=== PATIENT | female | born 1980 | race Caucasian/White ===

== ENCOUNTER 2016-10-19 19:12 | Observation (INO) | payer OTHER ==
[~2016-10-19] VITALS: Ht 160 cm; Wt 80.3 kg
[~2016-10-19 19:12] MED LIST: CEPH500C PO; SULF800T23 PO
[2016-10-19] MEDS ORDERED: SODIUM CHLORIDE 0.9% 1000ML 1,000 ML IV ONE (20:50)
[2016-10-19] MEDS ORDERED: KETOROLAC TROMETHAMINE 30 MG/ML VIAL IV STA (20:50)
[2016-10-19] MEDS ORDERED: SODIUM CHLORIDE 0.9% 1000ML 1,000 ML IV STA (20:50)
[2016-10-19 21:03] LABS: BASO % 0.3 %; BASO ABS # 0.02 K/uL (0-0.2); COMPLETE YES; EOS % 0.7 %; HEMATOCRIT 35.8 % (37-47); IG% 0.1 %; LYMPH % 26.2 %; LYMPH ABS # 1.78 K/uL (1.2-3.4); MEAN CELL VOLUME 95.5 fL (80-100); MEAN CORPUSCULAR HEMOGLOBIN 32.8 pg (25-34); MEAN CORPUSCULAR HGB CONC 34.4 g/dl (32-36); MEAN PLATELET VOLUME 9.3 fL (7.4-10.4); MONO % 4.9 %; NEUT % 67.8 %; PLATELET COUNT 217 K/uL (130-400); RED BLOOD COUNT 3.75 M/uL (4.2-5.4); WHITE BLOOD COUNT 6.79 K/uL (4.8-10.8)
--- NOTE | 2016-10-19 21:14 | EMERGENCY ROOM VISIT NOTE ---
History Report prepared by Esa: Vitaliy Barksdale Under the Supervision of: Dr. Delroy Alexander M.D. First contact with patient: 20:45 Chief Complaint: OTHER COMPLAINT Stated Complaint: HEAD, NECK, CHEST PAIN, BLACK OUT, WEAK, NAUSEA,LI History of Present Illness The patient is a 35 year old female who presents to the Emergency Room with complaints of syncopal episodes starting yesterday. She also complains of right sided neck pain and stiffness occurring for the past week and worsening in the past 2 days. She also reports weakness, chills, lightheadedness, dizziness, nausea, and vomiting. She has been having an intermittent, sharp, left sided chest pain. The pain lasts for a few minutes at a time. She has worsening pain with breathing. She also complains of a headache in the back of her head. She has a history of similar headaches but reports that the severity of her current headache is much worse than normal. She has had a loss of appetite and a reduced fluid intake. She has a history of anxiety and reports her current symptoms are similar to her past anxiety symptoms. She denies any trauma, injuries, fevers, dark/bloody stools, urinary symptoms, pain/swelling in lower extremities, or any other complaints. She denies any chance of . She denies any history of blood clots. 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 She quit smoking about a year ago. Source of History: patient, family Onset: yesterday Position: other (global) Quality: other (syncopal episodes) Associated Symptoms: + chest pain, + chills, + headache, + nausea, + neck pain, + vomiting, + weakness, No fevers, No urinary symptoms Review of Systems See HPI for pertinent positives & negatives. A total of 10 systems reviewed and were otherwise negative. Past Medical & Surgical Medical Problems: (1) Chest pain (2) Mily-rectal abscess (3) Pleuritic chest pain Surgical Problems: (1) S/P tubal ligation Old medical records were reviewed. Nurse's notes were reviewed and I agree with. Denies history cardiac disease, diabetes, blood clots, pneumothoraces, strokes She does have a history of headaches and migraines Family History FH: cancer FHx: diabetes mellitus FHx: heart disease FHx: seizures Social History Smoking Status: Never Smoker Drug Use: none Marital Status: Housing Status: lives with family Occupation Status: unemployed Current/Historical Medications Scheduled Cyanocobalamin (Vitamin B12), 1 TAB PO DAILY Doxycycline Monohydrate (Monodox), 50 MG PO DAILY Multivit/Min/Iron/Fol Ac/Pren ( Vitamin), 1 TAB PO DAILY [Back Cream], 1 APPLN TOP UD Scheduled PRN Clonazepam (Klonopin), 1 MG PO TID PRN for Anxiety Allergies Coded Allergies: No Known Allergies (Verified , 12/28/15) Physical Exam Vital Signs Date Time Temp Pulse Resp B/P Pulse Ox O2 Delivery O2 Flow Rate FiO2 10/19/16 22:22 78 18 114/75 97 Room Air 10/19/16 20:45 61 10/19/16 19:47 37.2 62 18 120/81 100 Room Air Physical Exam General: Non-ill appearing, young female, in no acute distress. HEENT: Normal cephalic atraumatic. Pupils are equal round and reactive to light. Sclerae anicteric. Extraocular movements are intact. Oropharynx is pink with moist mucous membranes. No swelling of the mouth lips or tongue. Neck: Supple with a midline trachea. No meningeal signs or stiffness, no JVD or bruits. No Stridor. Negative Kernig's and Brudzinski's sign. Chest: Clear to auscultation bilaterally. No wheezes or rhonchi. No increased work of breathing. Heart: regular rate and rhythm. Abdomen: Soft nontender, nondistended without rebound guarding or rigidity. Extremities: No cyanosis clubbing or edema. No calf tenderness or assymetry Spine/Back. Non tender to palpation. No CVA tenderness Skin: Good turgor without rashes. Neurologic exam: Cranial nerves two through 12 are intact. Motor and sensation are intact and symmetrical throughout. Medical Decision & Procedures ER Provider Diagnostic Interpretation: X ray results as stated below per my interpretation and radiologist interpretation. CT results as stated below per my review and radiologist interpretation: CHEST CTA for PULMONARY ARTERIES CT DOSE: 304.35 mGy.cm HISTORY: Chest pain dyspnea TECHNIQUE: Multiaxial CT images of the chest were performed following the intravenous administration of contrast to evaluate the pulmonary arteries. Maximal intensity projection images were also obtained. COMPARISON STUDY: None. FINDINGS: Study is positive for a secondary embolus involving the left lingula. There is no evidence for major central pulmonary most. Thoracic aorta is unremarkable throughout. There is no evidence for aneurysm or dissection. Evaluation of lung parenchyma shows no evidence for focal infiltrate. There is no evidence for pneumothorax. IMPRESSION: 1. Study is positive for a second order embolus involving the left lingular pulmonary arterial distribution. 2. No additional central or main embolic process. 3. Lungs are considered clear. Electronically signed by: Dev Martins M.D. 10/19/2016 10:54 PM CHEST ONE VIEW PORTABLE CLINICAL HISTORY: CHEST PAIN dyspnea COMPARISON STUDY: 04/10/2016 FINDINGS: The bones soft tissues and hemidiaphragms are normal. The cardiomediastinal silhouette is normal. The lungs are clear. The pulmonary vasculature is normal. IMPRESSION: Negative chest. Electronically signed by: Dev Martins M.D. 10/19/2016 9:[address] CT DOSE: 537.48 mGy.cm HISTORY: Mental status change headache TECHNIQUE: Multiaxial CT images of the head were performed without the use of intravenous contrast. Comparison: 04/10/2016 Findings: The paranasal sinuses and mastoid air cells are clear. The calvarium and skull base are intact. The ventricles and sulci are within normal limits. There is no mass, hematoma, midline shift, or acute infarct. Impression: No acute intracranial abnormality. Electronically signed by: Dev Martins M.D. 10/19/2016 9:37 PM Laboratory Results 10/19/16 20:35 Red Blood Count 3.75, Mean Corpuscular Volume 95.5, Mean Corpuscular Hemoglobin 32.8, Mean Corpuscular Hemoglobin Concent 34.4, Mean Platelet Volume 9.3, Neutrophils (%) (Auto) 67.8, Lymphocytes (%) (Auto) 26.2, Monocytes (%) (Auto) 4.9, Eosinophils (%) (Auto) 0.7, Basophils (%) (Auto) 0.3, Neutrophils # (Auto) 4.60, Lymphocytes # (Auto) 1.78, Monocytes # (Auto) 0.33, Eosinophils # (Auto) 0.05, Basophils # (Auto) 0.02 10/19/16 20:35 Test 10/19/16 20:35 10/19/16 20:50 White Blood Count 6.79 K/uL (4.8-10.8) Red Blood Count 3.75 M/uL (4.2-5.4) Hemoglobin 12.3 g/dL (12.0-16.0) Hematocrit 35.8 % (37-47) Mean Corpuscular Volume 95.5 fL (80-100) Mean Corpuscular Hemoglobin 32.8 pg (25-34) Mean Corpuscular Hemoglobin Concent 34.4 g/dl (32-36) Platelet Count 217 K/uL (130-400) Mean Platelet Volume 9.3 fL (7.4-10.4) Neutrophils (%) (Auto) 67.8 % Lymphocytes (%) (Auto) 26.2 % Monocytes (%) (Auto) 4.9 % Eosinophils (%) (Auto) 0.7 % Basophils (%) (Auto) 0.3 % Neutrophils # (Auto) 4.60 K/uL (1.4-6.5) Lymphocytes # (Auto) 1.78 K/uL (1.2-3.4) Monocytes # (Auto) 0.33 K/uL (0.11-0.59) Eosinophils # (Auto) 0.05 K/uL (0-0.5) Basophils # (Auto) 0.02 K/uL (0-0.2) RDW Standard Deviation 43.8 fL (36.4-46.3) RDW Coefficient of Variation 12.5 % (11.5-14.5) Immature Granulocyte % (Auto) 0.1 % Immature Granulocyte # (Auto) 0.01 K/uL (0.00-0.02) D-Dimer 1000 ug/L FEU (0-500) Anion Gap 11.0 mmol/L (3-11) Est Creatinine Clear Calc Drug Dose 101.5 ml/min Estimated GFR () 114.0 Estimated GFR (Non- 98.4 BUN/Creatinine Ratio 10.0 (10-20) Calcium Level 9.1 mg/dl (8.5-10.1) Total Bilirubin 0.5 mg/dl (0.2-1) Direct Bilirubin < 0.1 mg/dl (0-0.2) Aspartate Amino Transf (AST/SGOT) 18 U/L (15-37) Alanine Aminotransferase (ALT/SGPT) 20 U/L (12-78) Alkaline Phosphatase 66 U/L (45-117) Total Creatine Kinase 49 U/L (26-192) Creatine Kinase MB < 0.5 ng/ml (0.5-3.6) Troponin I < 0.015 ng/ml (0-0.045) Total Protein 8.0 gm/dl (6.4-8.2) Albumin 4.2 gm/dl (3.4-5.0) Lipase 100 U/L (73-393) Human Chorionic Gonadotropin, Qual NEG (NEG) Creatine Kinase MB Ratio (0-3.0) Laboratory studies as stated above per my review. Medications Administered Medications (Trade) Dose Ordered Sig/Selam Route Start Time Stop Time Status Last Admin Dose Admin Sodium Chloride 1,000 ml @ 999 mls/hr Q1H1M STAT IV 10/19/16 20:50 10/19/16 21:50 DC 10/19/16 20:50 999 MLS/HR Sodium Chloride (Nss 1000ml) 1,000 ml @ 150 mls/hr Q6H40M ONCE IV 10/19/16 20:50 10/20/16 01:14 DC 10/19/16 20:50 150 MLS/HR Ketorolac Tromethamine (Toradol Inj) 30 mg NOW STAT IV 10/19/16 20:50 10/19/16 20:53 DC 10/19/16 20:50 30 MG Morphine Sulfate (MoRPHine SULFATE INJ) 4 mg NOW STAT IV 10/19/16 22:06 10/19/16 22:07 DC 10/19/16 22:21 4 MG Ondansetron HCl (Zofran Inj) 4 mg NOW STAT IV 10/19/16 22:06 10/19/16 22:07 DC 10/19/16 22:21 4 MG Morphine Sulfate (MoRPHine SULFATE INJ) 4 mg NOW STAT IV 10/19/16 23:11 10/19/16 23:12 DC 10/19/16 23:53 4 MG Ondansetron HCl (Zofran Inj) 4 mg NOW STAT IV 10/19/16 23:11 10/19/16 23:12 DC 10/19/16 23:53 4 MG ECG Indication: syncope Rate (beats per minute): 56 Rhythm: sinus bradycardia Findings: no acute ischemic change, other (Sinus arrhythmia) Comparison ECG Date: April 10, 2016 Change: no significant change ED Course 2044: Past medical records reviewed. The patient was evaluated in room B03B, and a complete history and physical examination were performed. 2049: Toradol Inj 30 mg IV, Sodium Chloride 1000 ml @ 150 mls/hr IV, Sodium Chloride 1000 ml @ 999 mls/hr IV 2204: I reevaluated the patient who is requesting more pain medications. She ambulated to the bathroom without difficulty. She is agreeable to a CT scan. 2205: Zofran Inj 4 mg IV, Morphine Sulfate 4 mg IV 2307: Upon reevaluation, the patient is resting comfortably. I discussed the results and treatment plan with the patient. She verbalized agreement of the treatment plan. The patient will be evaluated for further management. 2310: Zofran Inj 4 mg IV, Morphine Sulfate 4 mg IV 2319: I discussed the patient's case with Dr. Orellana, from [facility]. Medical Decision Differential diagnosis includes but is not limited to migraine, acute coronary syndrome, arrhythmia, pulmonary embolism, meningitis, aortic disease, anxiety, electrolyte or metabolic abnormality. This patient comes in as described above. She has several complaints. she is having a headache and right-sided neck pain. The headache is intermittent and it moves from one location to another. It is mostly in the left side and moves from the front to the back. She has a history of migraines and a family migraine history. She's had no fever or chills. she has nothing to suggest meningitis or encephalitis. she has a normal neurologic exam. she's had no trauma. The neck pain is is reproducible on palpation on the right side of the neck .she has no meningeal signs or stiffness and has negative Kernig and Brudzinski signs. She had multiple blood testing while she was here as well as CAT scan of her head and chest x-ray and EKG. her EKG does not suggest acute coronary syndrome or arrhythmia. Her troponin is not elevated. she is not . She has no acute electrolyte or metabolic abnormalities. Her chest x -ray is clear and does not show any congestive heart failure, pneumonia, or pneumothorax. Her d-dimer was elevated at over thousand. In light of this and her complaints of chest pain, I did do a chest CT and the radiologist felt it was positive for a segmental PE in the lingula. In light of this, I do think the patient needs to be admitted for further treatment and evaluation. She received IV Toradol for her head ache while she was here and it did not help .she did receive morphine 4 mg IV as well as IV Zofran and this helped she did require additional dosages of these medications. I have consulted Dr. Orellana, for further treatment and evaluation of this patient in the ER, she will need a hypercoagulation workup as well as further treatment and evaluation. Consults Time Called: 2314 Consulting Physician: Dr. Orellana, from [facility] Returned Call: [phone] I discussed the patient's case with Dr. Orellana, from [facility]. Impression Primary Impression: Pulmonary embolism Additional Impression: Headache Scribe Attestation The scribe's documentation has been prepared under my direction and personally reviewed by me in its entirety. I confirm that the note above accurately reflects all work, treatment, procedures, and medical decision making performed by me. Departure Information Dispostion Being Evaluated By Hospitalist Referrals Kimber Sawyer DO (PCP) Patient Instructions A Signature Page, My [facility]
[2016-10-19 21:20] LABS: ALT/SGPT 20 U/L (12-78); BLOOD UREA NITROGEN 8 mg/dl (7-18); CALCIUM 9.1 mg/dl (8.5-10.1); CARBON DIOXIDE 25 mmol/L (21-32); CHLORIDE 105 mmol/L (98-107); CREATININE 0.79 mg/dl (0.60-1.20); GLUCOSE 82 mg/dl (70-99); POTASSIUM 3.7 mmol/L (3.5-5.1); SODIUM 141 mmol/L (136-145)
[2016-10-19 21:22] LABS: PREG INTERNAL NEGATIVE QC NEG CLEAR BACKGROUND; PREG INTERNAL POSITIVE QC POS CONTROL LINE
[2016-10-19 21:28] LABS: ALKALINE PHOSPHATASE 66 U/L (45-117); AST/SGOT 18 U/L (15-37)
--- NOTE | 2016-10-19 21:39 | DIAGNOSTIC IMAGING REPORT ---
HEAD CT NONCONTRAST CT DOSE: 537.48 mGy.cm HISTORY: Mental status change headache TECHNIQUE: Multiaxial CT images of the head were performed without the use of intravenous contrast. Comparison: 04/10/2016 Findings: The paranasal sinuses and mastoid air cells are clear. The calvarium and skull base are intact. The ventricles and sulci are within normal limits. There is no mass, hematoma, midline shift, or acute infarct. Impression: No acute intracranial abnormality. Electronically signed by: Dev Martins M.D. 10/19/2016 9:37 PM
[2016-10-19] MEDS ORDERED: ONDANSETRON INJ 2 MG/ML 2 ML VIAL IV STA ×2 (22:06→23:11)
[2016-10-19] MEDS ORDERED: MoRPHine SULFATE 4 MG/ML 1 ML CARP\\VIAL IV STA ×2 (22:06→23:11)
[2016-10-19] MEDS ORDERED: OPTIRAY 320 IV PRN (22:15)
--- NOTE | 2016-10-19 22:56 | DIAGNOSTIC IMAGING REPORT ---
CHEST CTA for PULMONARY ARTERIES CT DOSE: 304.35 mGy.cm HISTORY: Chest pain dyspnea TECHNIQUE: Multiaxial CT images of the chest were performed following the intravenous administration of contrast to evaluate the pulmonary arteries. Maximal intensity projection images were also obtained. COMPARISON STUDY: None. FINDINGS: Study is positive for a secondary embolus involving the left lingula. There is no evidence for major central pulmonary most. Thoracic aorta is unremarkable throughout. There is no evidence for aneurysm or dissection. Evaluation of lung parenchyma shows no evidence for focal infiltrate. There is no evidence for pneumothorax. IMPRESSION: 1. Study is positive for a second order embolus involving the left lingular pulmonary arterial distribution. 2. No additional central or main embolic process. 3. Lungs are considered clear. Electronically signed by: Dev Martins M.D. 10/19/2016 10:54 PM
[2016-10-19] MEDS ORDERED: POLYETHYLENE (MIRALAX) 17 GM PACK PO PRN (23:30)
[2016-10-19] MEDS ORDERED: NITROGLYCERIN 0.4 MG SL PER TAB CHARGE SL PRN (23:30)
[2016-10-19] MEDS ORDERED: ALUMINUM/MAGNESIUM/SIMETH (MAALOX MAX) 30 ML UDC PO PRN (23:30)
[2016-10-19] MEDS ORDERED: ONDANSETRON INJ 2 MG/ML 2 ML VIAL IV PRN (23:30)
[2016-10-19] MEDS ORDERED: MAGNESIUM HYDROXIDE SUSP 30 ML UDC PO PRN (23:30)
[2016-10-19] MEDS ORDERED: ACETAMINOPHEN 325 MG TAB PO PRN (23:30)
[2016-10-20] VITALS (9 sets, daily range): BP systolic 83–106; BP diastolic 47–67; PULSE 56–82; TEMP 36.5–36.8; O2SAT 96–100; Ht 160 cm; Wt 80.3 kg
--- NOTE | 2016-10-20 00:15 | History and Physical ---
History & Physical Date & Time of Service: Oct 20, 2016 at 00:00 Chief Complaint: Head, Neck, Chest Pain, Black Out, Weak, Nausea,Li Primary Care Physician: Kimber Sawyer DO History of Present Illness Source: patient, family, clinic records This is a 35 year old female with PMH of anxiety and migraines here secondary to multiple complaints, including headache, dizziness, lightheadedness, and chest pain - stated that these symptoms began in cluster yesterday - presyncopal episode at home, but no fall. States she has a hx. of migraines, but does not take any medications. States that she was also prescribed zoloft by psychiatrist, but she refuses to take it. She continues to take Klonopin as needed and states this works for her. She had work-up performed in the ER, including Head CT, which was negative. D- dimer was elevated, so a CT chest was performed to r/o PE and results suggested a left lingula embolism. Patient denies any change in medications, no travel history, denies any activity restrictions recently; not taking control pills. Past Medical/Surgical History Medical Problems: (1) Chest pain Status: Chronic (2) Mily-rectal abscess Status: Resolved (3) Pleuritic chest pain Status: Chronic Surgical Problems: (1) S/P tubal ligation Status: Chronic Family History FH: cancer FHx: diabetes mellitus FHx: heart disease FHx: seizures Social History Smoking Status: Never Smoker Drug Use: none Marital Status: Housing status: lives with family Occupational Status: unemployed Multi-Drug Resistant Organisms History of MDRO: No Allergies Coded Allergies: No Known Allergies (Verified , 12/28/15) Home Medications Scheduled Cyanocobalamin (Vitamin B12), 1 TAB PO DAILY Doxycycline Monohydrate (Monodox), 50 MG PO DAILY Multivit/Min/Iron/Fol Ac/Pren ( Vitamin), 1 TAB PO DAILY [Back Cream], 1 APPLN TOP UD Scheduled PRN Clonazepam (Klonopin), 1 MG PO TID PRN for Anxiety Review of Systems Constitutional: No chills, No fever ENT: No hearing loss Respiratory: + dyspnea on exertion, + shortness of breath, No cough, No dyspnea at rest, No hemoptysis, No sputum, No wheezing Cardiovascular: + chest pain Abdomen: No GI bleeding, No constipation, No diarrhea, No nausea, No pain, No vomiting Musculoskeletal: No joint pain, No muscle pain Genitourinary - Female: No dysuria, No hematuria, No urinary frequency, No urinary incontinence, No urinary retention, No urinary urgency Neurologic: + balance problems, + vertigo, + weakness, No memory loss Psychiatric: + anxiety, No depression symptoms, No insomnia Endocrine: No fatigue Hematologic / Lymphatic: No abnormal bleeding/bruising Integumentary: No rash Allergic / Immunologic: No environmental allergies, No seasonal allergies Physical Exam Vital Signs Date Time Temp Pulse Resp B/P Pulse Ox O2 Delivery O2 Flow Rate FiO2 10/19/16 22:22 78 18 114/75 97 Room Air 10/19/16 20:45 61 10/19/16 19:47 37.2 62 18 120/81 100 Room Air General Appearance: no apparent distress, + pertinent finding (+anxious) Head: normocephalic, atraumatic Eyes: normal inspection ENT: hearing grossly normal Neck: supple Respiratory/Chest: lungs clear, normal breath sounds, no respiratory distress, no accessory muscle use Cardiovascular: regular rate, rhythm, no edema, no murmur Abdomen/GI: normal bowel sounds, non tender, soft Extremities/Musculoskelatal: normal inspection, no calf tenderness, normal capillary refill, no pedal edema, normal range of motion Neurologic/Psych: no motor/sensory deficits, alert, + depressed affect Skin: normal color Lymphatic: no adenopathy Diagnostics Laboratory Results Results Past 24 Hours Test 10/19/16 20:35 10/19/16 20:50 10/19/16 23:30 Range/Units White Blood Count 6.79 4.8-10.8 K/uL Red Blood Count 3.75 4.2-5.4 M/uL Hemoglobin 12.3 12.0-16.0 g/dL Hematocrit 35.8 37-47 % Mean Corpuscular Volume 95.5 80-100 fL Mean Corpuscular Hemoglobin 32.8 25-34 pg Mean Corpuscular Hemoglobin Concent 34.4 32-36 g/dl Platelet Count 217 130-400 K/uL Mean Platelet Volume 9.3 7.4-10.4 fL Neutrophils (%) (Auto) 67.8 % Lymphocytes (%) (Auto) 26.2 % Monocytes (%) (Auto) 4.9 % Eosinophils (%) (Auto) 0.7 % Basophils (%) (Auto) 0.3 % Neutrophils # (Auto) 4.60 1.4-6.5 K/uL Lymphocytes # (Auto) 1.78 1.2-3.4 K/uL Monocytes # (Auto) 0.33 0.11-0.59 K/uL Eosinophils # (Auto) 0.05 0-0.5 K/uL Basophils # (Auto) 0.02 0-0.2 K/uL RDW Standard Deviation 43.8 36.4-46.3 fL RDW Coefficient of Variation 12.5 11.5-14.5 % Immature Granulocyte % (Auto) 0.1 % Immature Granulocyte # (Auto) 0.01 0.00-0.02 K/uL D-Dimer 1000 0-500 ug/L FEU Sodium Level 141 136-145 mmol/L Potassium Level 3.7 3.5-5.1 mmol/L Chloride Level 105 98-107 mmol/L Carbon Dioxide Level 25 21-32 mmol/L Anion Gap 11.0 3-11 mmol/L Blood Urea Nitrogen 8 7-18 mg/dl Creatinine 0.79 0.60-1.20 mg/dl Est Creatinine Clear Calc Drug Dose 101.5 ml/min Estimated GFR () 114.0 Estimated GFR (Non- 98.4 BUN/Creatinine Ratio 10.0 10-20 Random Glucose 82 70-99 mg/dl Calcium Level 9.1 8.5-10.1 mg/dl Total Bilirubin 0.5 0.2-1 mg/dl Direct Bilirubin < 0.1 0-0.2 mg/dl Aspartate Amino Transf (AST/SGOT) 18 15-37 U/L Alanine Aminotransferase (ALT/SGPT) 20 12-78 U/L Alkaline Phosphatase 66 45-117 U/L Total Creatine Kinase 49 26-192 U/L Creatine Kinase MB < 0.5 0.5-3.6 ng/ml Creatine Kinase MB Ratio 0-3.0 Troponin I < 0.015 0-0.045 ng/ml Total Protein 8.0 6.4-8.2 gm/dl Albumin 4.2 3.4-5.0 gm/dl Lipase 100 73-393 U/L Human Chorionic Gonadotropin, Qual NEG NEG Diagnostic Radiology HEAD CT NONCONTRAST CT DOSE: 537.48 mGy.cm HISTORY: Mental status change headache TECHNIQUE: Multiaxial CT images of the head were performed without the use of intravenous contrast. Comparison: 04/10/2016 Findings: The paranasal sinuses and mastoid air cells are clear. The calvarium and skull base are intact. The ventricles and sulci are within normal limits. There is no mass, hematoma, midline shift, or acute infarct. Impression: No acute intracranial abnormality. CHEST ONE VIEW PORTABLE CLINICAL HISTORY: CHEST PAIN dyspnea COMPARISON STUDY: 04/10/2016 FINDINGS: The bones soft tissues and hemidiaphragms are normal. The cardiomediastinal silhouette is normal. The lungs are clear. The pulmonary vasculature is normal. IMPRESSION: Negative chest. CHEST CTA for PULMONARY ARTERIES CT DOSE: 304.35 mGy.cm HISTORY: Chest pain dyspnea TECHNIQUE: Multiaxial CT images of the chest were performed following the intravenous administration of contrast to evaluate the pulmonary arteries. Maximal intensity projection images were also obtained. COMPARISON STUDY: None. FINDINGS: Study is positive for a secondary embolus involving the left lingula. There is no evidence for major central pulmonary most. Thoracic aorta is unremarkable throughout. There is no evidence for aneurysm or dissection. Evaluation of lung parenchyma shows no evidence for focal infiltrate. There is no evidence for pneumothorax. IMPRESSION: 1. Study is positive for a second order embolus involving the left lingular pulmonary arterial distribution. 2. No additional central or main embolic process. 3. Lungs are considered clear. Impression Assessment and Plan This is a 35 year old female with PMH of anxiety and migraines here secondary to multiple complaints, including headache, dizziness, lightheadedness, and chest pain found to have PE Left Lingula Pulmonary Embolism -->CT chest Study is positive for a second order embolus involving the left lingular pulmonary arterial distribution -->vital signs are stable, no respiratory distress, O2 saturation is good -->unsure the cause of embolism -->will obtain duplex U/S b/l LE -->hypercoag w/up -->start Xarelto 15mg BID x 21 days, then 20mg daily Chest Pain r/o ACS -->unlikely ACS, more likely related to her anxiety + PE -->will trend cardiac enzymes, EKG in AM -->continue Klonopin PRN -->should be on SSRI, but patient not agreeable observation status - likely d/c in AM; f/u with PCP regarding blood work VTE Prophylaxis VTE Risk Assessment Done? Y/N: Yes Risk Level: High
[2016-10-20] MEDS ORDERED: IV FLUIDS COMPLETED PRN (00:30)
[2016-10-20] MEDS: CLONAZEPAM 1 MG TAB PO PRN ×3 (04:03→22:22)
[2016-10-20] MEDS: SODIUM CHLORIDE 0.9% 1000ML 1,000 ML IV SCH ×2 (04:03→11:02)
[2016-10-20] MEDS ORDERED: PNEUMOCOCCAL POLYSACCHARIDES 25 MCG/0.5 ML VIAL/SYR IM. ONE (05:45)
[2016-10-20] MEDS ORDERED: INFLUENZA ADMINISTRATION CHARGE ONE (05:45)
[2016-10-20] MEDS ORDERED: PNEUMOCOCCAL ADMINISTRATION CHARGE ONE (05:45)
[2016-10-20] MEDS ORDERED: INFLUENZA VIRUS QUAD VACCINE 0.5 ML SYR IM. ONE (05:45)
--- NOTE | 2016-10-20 06:58 | DIAGNOSTIC IMAGING REPORT ---
BILATERAL LOWER EXTREMITY VENOUS DOPPLER CLINICAL HISTORY: Chest pain. Syncope. Nausea. COMPARISON STUDY: No previous studies for comparison. TECHNIQUE: Sonography of the deep venous system of the bilateral lower extremities was performed. Compression and augmentation were evaluated. FINDINGS: The bilateral common femoral, superficial femoral and popliteal veins were compressible. Augmentation was normal. Flow was shown within the deep calf vessels. IMPRESSION: No evidence of deep venous thrombus within the bilateral lower extremities. Electronically signed by: Radames Vital M.D. 10/20/2016 6:56 AM
--- NOTE | 2016-10-20 07:17 | DIAGNOSTIC IMAGING REPORT ---
CHEST ONE VIEW PORTABLE HISTORY: Short of breath. Pulmonary Embolism COMPARISON: Chest 10/19/2016. FINDINGS: The lungs remain clear. The heart is top normal in size. No pleural effusions. No pneumothorax. Osseous structures are well aligned. IMPRESSION: No acute process. Electronically signed by: Dioni Jones M.D. 10/20/2016 7:15 AM
[2016-10-20] MEDS: RIVAROXABAN TAB 15 MG TAB PO SCH ×2 (08:39→22:22)
[2016-10-20] MEDS ORDERED: RIVAROXABAN 20 MG TAB PO SCH (09:00)
[2016-10-20] MEDS ORDERED: ACETAMINOPHEN SOLN 650MG/20.3 ML UDC PO PRN (10:15)
[2016-10-20] MEDS ORDERED: ZOLPIDEM TARTRATE 5 MG TAB PO PRN (11:45)
--- NOTE | 2016-10-20 17:39 | Progress Note ---
Internal Med Progress Note Date of Service: Oct 20, 2016. Provider Documentation: SUBJECTIVE: Patient is seen and examined at bedside. Patient denies any chest pain, SOB. Hasn't slept well overnight and is anxious during encounter. OBJECTIVE: Vital Signs-as noted below General Appearance: no apparent distress, Moderately built and nourished, anxious Head: normocephalic, atraumatic Eyes: normal inspection ENT: hearing grossly normal Neck: supple, No JVD, Trachea midline Respiratory/Chest: lungs clear, normal breath sounds, no respiratory distress, no accessory muscle use Cardiovascular: regular rate, rhythm, no edema, no murmur Abdomen/GI: normal bowel sounds, non tender, soft Extremities/Musculoskelatal: normal inspection, no calf tenderness, normal capillary refill, no pedal edema, normal range of motion Neurologic/Psych: AAO X3, no motor/sensory deficits Skin: normal color Lymphatic: no adenopathy Lab data as noted below. ASSESSMENT & PLAN: Patient is a 35 Yr old female with PMH of Anxiety disorder, Migraine, former smoker presents with multiple complaints, including headache, dizziness, lightheadedness, and chest pain since one day duration. Patient had elevated D- dimer and CTA was positive for PE in left lingula. Patient denied any OCP use, recent travel but reports her mother had history of PE as well. Left Lingula Pulmonary Embolism Elevated d-dimer, CTA positive for PE Vitals stable Unclear etiology Hypercoagulable work up pending Venous duplex: Negative for DVT On Xarelto 15mg BID x 21 days, then 20mg daily Chest Pain r/o ACS Unlikely Pain likjely secondary to PE and anxiety Troponin X 2 negative, EKG no signs of ischemia Anxiety Disorder: Continue Klonopin Migraine: Stable DVT Px: On Xarelto Disposition: Plan to transfer to Medical floor Probable discharge to home tomorrow Vital Signs: Date Time Temp Pulse Resp B/P Pulse Ox O2 Delivery O2 Flow Rate FiO2 10/20/16 16:59 36.6 63 16 97/62 98 Room Air 10/20/16 16:30 36.6 63 16 98 10/20/16 16:00 Room Air 10/20/16 12:00 36.6 82 16 106/58 96 Room Air 10/20/16 12:00 Room Air 10/20/16 09:55 56 14 102/58 100 Room Air 10/20/16 08:00 Room Air 10/20/16 08:00 36.7 62 16 92/56 96 Room Air 10/20/16 05:11 36.5 57 14 83/47 Room Air 10/20/16 04:28 53 10/20/16 04:15 Room Air 10/20/16 04:14 36.5 57 14 83/47 98 Room Air 10/20/16 02:45 58 13 104/51 96 10/20/16 02:17 58 13 104/51 96 Room Air 10/20/16 00:10 78 18 109/72 98 Room Air 10/19/16 22:22 78 18 114/75 97 Room Air 10/19/16 20:45 61 10/19/16 19:47 37.2 62 18 120/81 100 Room Air Lab Results: Results Past 24 Hours Test 10/19/16 20:35 10/19/16 20:50 10/19/16 21:00 10/20/16 00:22 Range/Units White Blood Count 6.79 4.8-10.8 K/uL Red Blood Count 3.75 4.2-5.4 M/uL Hemoglobin 12.3 12.0-16.0 g/dL Hematocrit 35.8 37-47 % Mean Corpuscular Volume 95.5 80-100 fL Mean Corpuscular Hemoglobin 32.8 25-34 pg Mean Corpuscular Hemoglobin Concent 34.4 32-36 g/dl Platelet Count 217 130-400 K/uL Mean Platelet Volume 9.3 7.4-10.4 fL Neutrophils (%) (Auto) 67.8 % Lymphocytes (%) (Auto) 26.2 % Monocytes (%) (Auto) 4.9 % Eosinophils (%) (Auto) 0.7 % Basophils (%) (Auto) 0.3 % Neutrophils # (Auto) 4.60 1.4-6.5 K/uL Lymphocytes # (Auto) 1.78 1.2-3.4 K/uL Monocytes # (Auto) 0.33 0.11-0.59 K/uL Eosinophils # (Auto) 0.05 0-0.5 K/uL Basophils # (Auto) 0.02 0-0.2 K/uL RDW Standard Deviation 43.8 36.4-46.3 fL RDW Coefficient of Variation 12.5 11.5-14.5 % Immature Granulocyte % (Auto) 0.1 % Immature Granulocyte # (Auto) 0.01 0.00-0.02 K/uL D-Dimer 1000 0-500 ug/L FEU Sodium Level 141 136-145 mmol/L Potassium Level 3.7 3.5-5.1 mmol/L Chloride Level 105 98-107 mmol/L Carbon Dioxide Level 25 21-32 mmol/L Anion Gap 11.0 3-11 mmol/L Blood Urea Nitrogen 8 7-18 mg/dl Creatinine 0.79 0.60-1.20 mg/dl Est Creatinine Clear Calc Drug Dose 101.5 ml/min Estimated GFR () 114.0 Estimated GFR (Non- 98.4 BUN/Creatinine Ratio 10.0 10-20 Random Glucose 82 70-99 mg/dl Calcium Level 9.1 8.5-10.1 mg/dl Total Bilirubin 0.5 0.2-1 mg/dl Direct Bilirubin < 0.1 0-0.2 mg/dl Aspartate Amino Transf (AST/SGOT) 18 15-37 U/L Alanine Aminotransferase (ALT/SGPT) 20 12-78 U/L Alkaline Phosphatase 66 45-117 U/L Total Creatine Kinase 49 26-192 U/L Creatine Kinase MB < 0.5 0.5-3.6 ng/ml Creatine Kinase MB Ratio 0-3.0 Troponin I < 0.015 0-0.045 ng/ml Total Protein 8.0 6.4-8.2 gm/dl Albumin 4.2 3.4-5.0 gm/dl Lipase 100 73-393 U/L Human Chorionic Gonadotropin, Qual NEG NEG Bedside D-Dimer 1514 0-450 ng/mlFEU Test 10/20/16 05:22 10/20/16 14:40 Range/Units Total Creatine Kinase 46 38 26-192 U/L Creatine Kinase MB < 0.5 < 0.5 0.5-3.6 ng/ml Creatine Kinase MB Ratio 0-3.0 Troponin I < 0.015 < 0.015 0-0.045 ng/ml Microbiology Results 10/20/16 MRSA DNA Surveillance Screen - Final, Complete Specimen Negative for MRSA by DNA Probe
[2016-10-20] MEDS ORDERED: BISACODYL 5 MG TABEC PO ONE (20:45)
[2016-10-20] MEDS ORDERED: DOCUSATE SODIUM 100 MG CAP PO ONE (20:45)
[2016-10-20] MEDS ORDERED: SENNA 8.6 MG TAB PO ONE (20:45)
[2016-10-21] MEDS: SODIUM CHLORIDE 0.9% 1000ML 1,000 ML IV SCH (00:26)
[2016-10-21 07:04] LABS: MEAN CELL VOLUME 96.6 fL (80-100); MEAN CORPUSCULAR HEMOGLOBIN 33.3 pg (25-34); MEAN CORPUSCULAR HGB CONC 34.5 g/dl (32-36); MEAN PLATELET VOLUME 9.2 fL (7.4-10.4); PLATELET COUNT 186 K/uL (130-400); RED BLOOD COUNT 3.21 M/uL (4.2-5.4); WHITE BLOOD COUNT 4.94 K/uL (4.8-10.8)
[2016-10-21 07:17] VITALS: BP 93/60; PULSE 51; TEMP 36.6; O2SAT 95
[2016-10-21 07:41] LABS: BUN/CREATININE RATIO 9.7 (10-20); CALCIUM 8.3 mg/dl (8.5-10.1); CREATININE 0.73 mg/dl (0.60-1.20); POTASSIUM 3.7 mmol/L (3.5-5.1)
--- NOTE | 2016-10-21 08:16 | DIAGNOSTIC IMAGING REPORT ---
SINGLE VIEW CHEST CLINICAL HISTORY: Pulmonary embolus. FINDINGS: An AP, portable, upright chest radiograph is compared to study dated 10/20/2016 and correlated with chest CT dated 10/19/2016. The examination is degraded by portable technique and patient rotation. The cardiomediastinal silhouette is unremarkable. The lungs and pleural spaces are clear. No pneumothorax is seen. The bony thorax is grossly intact. IMPRESSION: The lungs are clear. Electronically signed by: Serjio Calvo M.D. 10/21/2016 8:14 AM Dictated Date/Time: 10/21/2016 8:13 AM
[2016-10-21] MEDS: RIVAROXABAN TAB 15 MG TAB PO SCH (09:28)
--- NOTE | 2016-10-21 10:05 | Progress Note ---
Internal Med Progress Note Date of Service: Oct 21, 2016. Provider Documentation: SUBJECTIVE: Patient is seen and examined at bedside. Feels well. Denies any chest pain, SOB. OBJECTIVE: Vital Signs-as noted below General Appearance: no apparent distress, Moderately built and nourished, anxious Head: normocephalic, atraumatic Eyes: normal inspection ENT: hearing grossly normal Neck: supple, No JVD, Trachea midline Respiratory/Chest: lungs clear, normal breath sounds, no respiratory distress, no accessory muscle use Cardiovascular: regular rate, rhythm, no edema, no murmur Abdomen/GI: normal bowel sounds, non tender, soft Extremities/Musculoskelatal: normal inspection, no calf tenderness, normal capillary refill, no pedal edema, normal range of motion Neurologic/Psych: AAO X3, no motor/sensory deficits Skin: normal color Lymphatic: no adenopathy Lab data as noted below. ASSESSMENT & PLAN: Patient is a 35 Yr old female with PMH of Anxiety disorder, Migraine, former smoker presents with multiple complaints, including headache, dizziness, lightheadedness, and chest pain since one day duration. Patient had elevated D- dimer and CTA was positive for PE in left lingula. Patient denied any OCP use, recent travel but reports her mother had history of PE as well. Left Lingula Pulmonary Embolism Elevated d-dimer, CTA positive for PE Vitals stable Unclear etiology Hypercoagulable work up pending Venous duplex: Negative for DVT On Xarelto 15mg BID x 21 days, then 20mg daily Chest Pain r/o ACS Ruled out Pain resolved Troponin X 2 negative, EKG no signs of ischemia Anxiety Disorder: Continue Klonopin Migraine: Stable DVT Px: On Xarelto Disposition: Plan to discharge home today Vital Signs: Date Time Temp Pulse Resp B/P Pulse Ox O2 Delivery O2 Flow Rate FiO2 10/21/16 07:17 36.6 51 18 93/60 95 Room Air 10/20/16 23:45 Room Air 10/20/16 23:32 36.8 57 16 100/67 97 Room Air 10/20/16 16:59 36.6 63 16 97/62 98 Room Air 10/20/16 16:30 Room Air 10/20/16 16:30 36.6 63 16 98 10/20/16 16:00 Room Air 10/20/16 12:00 36.6 82 16 106/58 96 Room Air 10/20/16 12:00 Room Air Lab Results: Results Past 24 Hours Test 10/20/16 14:40 10/21/16 06:35 Range/Units Total Creatine Kinase 38 26-192 U/L Creatine Kinase MB < 0.5 0.5-3.6 ng/ml Creatine Kinase MB Ratio 0-3.0 Troponin I < 0.015 0-0.045 ng/ml White Blood Count 4.94 4.8-10.8 K/uL Red Blood Count 3.21 4.2-5.4 M/uL Hemoglobin 10.7 12.0-16.0 g/dL Hematocrit 31.0 37-47 % Mean Corpuscular Volume 96.6 80-100 fL Mean Corpuscular Hemoglobin 33.3 25-34 pg Mean Corpuscular Hemoglobin Concent 34.5 32-36 g/dl RDW Standard Deviation 44.3 36.4-46.3 fL RDW Coefficient of Variation 12.6 11.5-14.5 % Platelet Count 186 130-400 K/uL Mean Platelet Volume 9.2 7.4-10.4 fL Sodium Level 144 136-145 mmol/L Potassium Level 3.7 3.5-5.1 mmol/L Chloride Level 110 98-107 mmol/L Carbon Dioxide Level 25 21-32 mmol/L Anion Gap 9.0 3-11 mmol/L Blood Urea Nitrogen 7 7-18 mg/dl Creatinine 0.73 0.60-1.20 mg/dl Est Creatinine Clear Calc Drug Dose 110.0 ml/min Estimated GFR () 125.4 Estimated GFR (Non- 108.2 BUN/Creatinine Ratio 9.7 10-20 Random Glucose 79 70-99 mg/dl Calcium Level 8.3 8.5-10.1 mg/dl
[2016-10-21] MEDS ORDERED: XRL15 PO (10:10)
--- NOTE | 2016-10-21 10:17 | Discharge Instructions ---
Discharge Instructions Admission Reason for Admission: Pulmonary Embolism Discharge Discharge Diagnosis / Problem: Pulmonary Embolism Discharge Goals Goal(s): Decrease discomfort, Improve function Activity Recommendations Activity Limitations: resume your previous activity . Instructions / Follow-Up Instructions / Follow-Up Follow up with on 10/31/16 at 11:10am Start taking Xarelto 15mg by mouth twice a day for 20 days (Start taking tonight ) Then you will start xarelto 20mg daily- PCP to give prescription Coagulation clinic will be in contact with you Current Hospital Diet Patient's current hospital diet: Regular Diet Discharge Diet Recommended Diet: Regular Diet Pending Studies Studies pending at discharge: yes List of pending studies: Hypercoaguable studies: Follow up with your PCP for results Medical Emergencies . Who to Call and When: Medical Emergencies: If at any time you feel your situation is an emergency, please call 911 immediately. . Non-Emergent Contact Non-Emergency issues call your: Primary Care Provider . . "Provider Documentation" section prepared by Hay Lowry. VTE Core Measure Inpt VTE Proph given/why not?: Other Anticoagulation
[2016-10-21 12:09] VITALS: BP 93/60; PULSE 51; TEMP 36.6; O2SAT 95
--- NOTE | 2016-10-21 18:38 | Discharge Summary ---
Discharge Summary Admission Date: Oct 19, 2016 at 23:57 Discharge Date: Oct 21, 2016 Discharge Disposition: Home Principal Diagnosis: Pulmonary Embolism Secondary Diagnoses/Problems: Anxiety Disorder Migraine Procedures: CT head: No acute intracranial abnormality. CTA: 1. Study is positive for a second order embolus involving the left lingular pulmonary arterial distribution. 2. No additional central or main embolic process. 3. Lungs are considered clear. Venous Duplex; No evidence of deep venous thrombus within the bilateral lower extremities. Admission Information HPI (per Admitting provider): This is a 35 year old female with PMH of anxiety and migraines here secondary to multiple complaints, including headache, dizziness, lightheadedness, and chest pain - stated that these symptoms began in cluster yesterday - presyncopal episode at home, but no fall. States she has a hx. of migraines, but does not take any medications. States that she was also prescribed zoloft by psychiatrist, but she refuses to take it. She continues to take Klonopin as needed and states this works for her. She had work-up performed in the ER, including Head CT, which was negative. D- dimer was elevated, so a CT chest was performed to r/o PE and results suggested a left lingula embolism. Patient denies any change in medications, no travel history, denies any activity restrictions recently; not taking control pills. Physical Exam (per Admitting): General Appearance: no apparent distress, + pertinent finding (+anxious) Head: normocephalic, atraumatic Eyes: normal inspection ENT: hearing grossly normal Neck: supple Respiratory/Chest: lungs clear, normal breath sounds, no respiratory distress, no accessory muscle use Cardiovascular: regular rate, rhythm, no edema, no murmur Abdomen/GI: normal bowel sounds, non tender, soft Extremities/Musculoskelatal: normal inspection, no calf tenderness, normal capillary refill, no pedal edema, normal range of motion Neurologic/Psych: no motor/sensory deficits, alert, + depressed affect Skin: normal color Lymphatic: no adenopathy Physical Exam (per Admitting): Physical Exam Vital Signs Date Time Temp Pulse Resp B/P Pulse Ox O2 Delivery O2 Flow Rate FiO2 10/19/16 22:22 78 18 114/75 97 Room Air 10/19/16 20:45 61 10/19/16 19:47 37.2 62 18 120/81 100 Room Air General Appearance: no apparent distress, + pertinent finding (+anxious) Head: normocephalic, atraumatic Eyes: normal inspection ENT: hearing grossly normal Neck: supple Respiratory/Chest: lungs clear, normal breath sounds, no respiratory distress, no accessory muscle use Cardiovascular: regular rate, rhythm, no edema, no murmur Abdomen/GI: normal bowel sounds, non tender, soft Extremities/Musculoskelatal: normal inspection, no calf tenderness, normal capillary refill, no pedal edema, normal range of motion Neurologic/Psych: no motor/sensory deficits, alert, + depressed affect Skin: normal color Lymphatic: no adenopathy Hospital Course Patient is a 35 Yr old female with PMH of Anxiety disorder, Migraine, former smoker presents with multiple complaints, including headache, dizziness, lightheadedness, and chest pain since one day duration. Patient had elevated D- dimer and CTA was positive for PE in left lingula. Patient denied any OCP use, recent travel but reports her mother had history of PE as well. Patient was treated conservatively with IV fluids and was started on Xarelto. Venous Duplex is negative for DVT. Patient was clinically stable during the hospital course. Hypercoagulable work up is pending is at the time of discharge. Patient is advised to continue Xarelto and follow up with her PCP in 1 week. Advised to seek immediate medical attention if her symptoms reoccur or worsen. Left Lingula Pulmonary Embolism Elevated d-dimer, CTA positive for PE Vitals stable Unclear etiology Hypercoagulable work up pending Venous duplex: Negative for DVT On Xarelto 15mg BID x 21 days, then 20mg daily Chest Pain r/o ACS Ruled out Pain resolved Troponin X 2 negative, EKG no signs of ischemia Anxiety Disorder: Continue Klonopin Migraine: Stable DVT Px: On Xarelto Disposition: Plan to discharge home today Total time spent on discharge = This includes examination of the patient, discharge planning, medication reconciliation, and communication with other providers. Discharge Instructions Discharge Instructions Admission Reason for Admission: Pulmonary Embolism Discharge Discharge Diagnosis / Problem: Pulmonary Embolism Discharge Goals Goal(s): Decrease discomfort, Improve function Activity Recommendations Activity Limitations: resume your previous activity . Instructions / Follow-Up Instructions / Follow-Up Follow up with on 10/31/16 at 11:10am Start taking Xarelto 15mg by mouth twice a day for 20 days (Start taking tonight ) Then you will start xarelto 20mg daily- PCP to give prescription Coagulation clinic will be in contact with you Current Hospital Diet Patient's current hospital diet: Regular Diet Discharge Diet Recommended Diet: Regular Diet Pending Studies Studies pending at discharge: yes List of pending studies: Hypercoaguable studies: Follow up with your PCP for results Medical Emergencies . Who to Call and When: Medical Emergencies: If at any time you feel your situation is an emergency, please call 911 immediately. . Non-Emergent Contact Non-Emergency issues call your: Primary Care Provider . . "Provider Documentation" section prepared by Hay Lowry. VTE Core Measure Inpt VTE Proph given/why not?: Other Anticoagulation
[2016-10-25 15:31] LABS: ANTITHROMBINIII ACTIVITY** 93 % activity (80-120); B2 GLYCOPROTEIN IGA <9 SAU (<=20); B2 GLYCOPROTEIN IGG <9 SGU (<=20); B2 GLYCOPROTEIN IGM <9 SMU (<=20); LUPUS ANTICOAGULANT** TC36573X Negative (Negative); PROTEIN C ACTIVITY** TC 1777X 103 % (70-180); PROTEIN S ACT(FUNCT)**1779X 81 % (60-140)
[2017-01-17] MEDS ORDERED: ACET-749 PO (18:01)
[2017-01-17] MEDS ORDERED: GABA-112 PO (18:01)
[2017-01-17] MEDS ORDERED: BENZ60GE TOP (18:15)
== END 2016-10-21 12:38 | disposition home or self-care (01) ==
LOC: ENRESERVDT → ENRESERVTM → C.EDB 19:15 → C.EDINP 23:57 → C.MSICU 10-20 06:05 → C.MSN 10-20 14:00
PROVIDERS: ADMIT Family Medicine; ATTEND Internal Medicine
DX: I26.99 Other pulmonary embolism without acute cor pulmonale (principal); G43.909 Migraine, unspecified, not intractable, without status migrainosus; Z87.891 Personal history of nicotine dependence; Z83.3 Family history of diabetes mellitus; Z82.49 Family history of ischemic heart disease and other diseases of the circulatory system

== ENCOUNTER 2016-10-25 14:49 | Emergency (ER) | payer OTHER ==
[~2016-10-25] VITALS: Ht 170.2 cm; Wt 80.0 kg
[~2016-10-25 14:49] MED LIST changes: -CEPH500C PO; -SULF800T23 PO; +XRL15 PO
[2016-10-25 14:56] VITALS: TEMP 37.5; Ht 170.2 cm; Wt 80.0 kg
[2016-10-25] MEDS ORDERED: SODIUM CHLORIDE 0.9% 1000ML 1,000 ML IV STA (15:08)
[2016-10-25] MEDS ORDERED: ACETAMINOPHEN 500 MG TAB PO STA (15:08)
[2016-10-25] MEDS ORDERED: ONDANSETRON INJ 2 MG/ML 2 ML VIAL IV STA (15:08)
[2016-10-25 15:18] LABS: HEMATOCRIT 35.5 % (37-47); MEAN CELL VOLUME 95.9 fL (80-100); MEAN CORPUSCULAR HEMOGLOBIN 33.5 pg (25-34); MEAN CORPUSCULAR HGB CONC 34.9 g/dl (32-36); MEAN PLATELET VOLUME 9.4 fL (7.4-10.4); PLATELET COUNT 251 K/uL (130-400)
[2016-10-25] MEDS ORDERED: RIVA1TAB4 PO (15:18)
[2016-10-25 15:25] LABS: BUN/CREATININE RATIO 13.1 (10-20); CALCIUM 10.2 mg/dl (8.5-10.1); CREATININE 0.72 mg/dl (0.60-1.20); POTASSIUM 3.5 mmol/L (3.5-5.1)
[2016-10-25 15:27] LABS: INR 1.1 (0.9-1.1); PARTIAL THROMBOPLASTIN RATIO 1.3; PROTHROMBIN TIME (PATIENT) 12.3 SECONDS (9.0-12.0)
[2016-10-25] MEDS ORDERED: LORAZEPAM 2 MG/ML 1 ML VIAL IV STA (15:45)
[2016-10-25] MEDS ORDERED: NORETHINDRONE ACETATE 5 MG TAB PO STA (15:45)
--- NOTE | 2016-10-25 15:49 | EMERGENCY ROOM VISIT NOTE ---
History Report prepared by Esa: Delroy Nunes Under the Supervision of: Dr. Serjio Lay M.D. First contact with patient: 15:01 Chief Complaint: VAGINAL BLEEDING Stated Complaint: VAGINAL BLEEDING History of Present Illness The patient is a 35 year old female who presents to the Emergency Room with complaints of persistent vaginal bleeding beginning about 3 days ago. She states she was recently diagnosed with a PE and is on Xarelto. She was admitted and discharged 5 days ago. Her menstrual cycle began 3 days ago which is normal for her, but she has had excessive bleeding. She states her bleeding is worse when she is standing. She called her doctor and was referred to the ER. She has had lightheadedness which is worse with standing, headaches, nausea, chest tingling, and anxiety. She has had some cramps which were intense at home but not currently. She denies any chest pain or shortness or breath. The patient reports using 5 pads last night, and bought thicker pads and has used one of those today. She states her mother had a history of blood clots, and admits to a personal history of asthma. She reports taking medication for anxiety. The patient states she recently lost 45 pounds. Source of History: patient Onset: 3 days ago Position: other (vagina) Symptom Intensity: used 5 pads last night Quality: other (vaginal bleeding) Timing: other (persistent) Modifying Factors (Worsening): other (standing) Associated Symptoms: + headache, + nausea, No SOB, No chest pain Note: The patient notes having chest tingling, and lightheadedness.. Review of Systems See HPI for pertinent positives & negatives. A total of 10 systems reviewed and were otherwise negative. Past Medical & Surgical Medical Problems: (1) Chest pain (2) Mily-rectal abscess (3) Pleuritic chest pain Surgical Problems: (1) S/P tubal ligation Family History FH: cancer FHx: diabetes mellitus FHx: heart disease FHx: seizures Social History Smoking Status: Former Smoker Drug Use: none Marital Status: Housing Status: lives with family Occupation Status: unemployed Current/Historical Medications Scheduled Cyanocobalamin (Vitamin B12), 1 TAB PO DAILY Doxycycline Monohydrate (Monodox), 50 MG PO DAILY Multivit/Min/Iron/Fol Ac/Pren ( Vitamin), 1 TAB PO DAILY Norethindrone Acetate (Aygestin), 2 TAB PO DAILY Rivaroxaban (Xarelto), 20 MG PO BID [Back Cream], 1 APPLN TOP UD Scheduled PRN Clonazepam (Klonopin), 1 MG PO TID PRN for Anxiety Allergies Coded Allergies: No Known Allergies (Verified , 12/28/15) Physical Exam Vital Signs Date Time Temp Pulse Resp B/P Pulse Ox O2 Delivery O2 Flow Rate FiO2 10/25/16 16:59 62 16 98/60 99 10/25/16 15:23 60 16 106/70 66 112/79 71 129/83 10/25/16 15:06 65 10/25/16 14:56 37.5 63 20 117/81 100 Room Air Physical Exam GENERAL: Patient is in no acute distress. HEENT: No acute trauma, normocephalic atraumatic, mucous membranes moist, no nasal congestion, no scleral icterus. NECK: No stridor, no adenopathy, no meningismus, trachea is midline. LUNGS: Clear to auscultation bilaterally, no wheeze, no rhonchi, breath sounds equal. HEART: Without murmurs gallops or rubs, regular rate and rhythm. ABDOMEN: Soft, nontender, bowel sounds positive, no hernias, no peritonitis. EXTREMITIES: No cyanosis or edema, full range of motion of all the joints without pain or difficulty, no signs for acute trauma. NEUROLOGIC: Oriented x 3, no acute motor or sensory deficits, no focal weakness. SKIN: No rash, no jaundice, no diaphoresis. Medical Decision & Procedures ER Provider Diagnostic Interpretation: Orthostatic vital signs are negative. X-ray results as stated below per interpretation by me and the radiologist: CHEST ONE VIEW PORTABLE FINDINGS: Lung volumes are normal. Lungs are clear. There is no pneumothorax or pleural effusion. Cardiac size is normal. Mediastinal contours are normal. There is no evidence of pulmonary edema. IMPRESSION: No acute cardiopulmonary findings. Electronically signed by: Radames Vital M.D. 10/25/2016 4:25 PM Dictated Date/Time: 10/25/2016 4:20 PM Laboratory Results 10/25/16 14:30 10/25/16 14:30 Test 10/25/16 14:30 Red Blood Count 3.70 M/uL (4.2-5.4) Mean Corpuscular Volume 95.9 fL (80-100) Mean Corpuscular Hemoglobin 33.5 pg (25-34) Mean Corpuscular Hemoglobin Concent 34.9 g/dl (32-36) RDW Standard Deviation 44.2 fL (36.4-46.3) RDW Coefficient of Variation 12.6 % (11.5-14.5) Mean Platelet Volume 9.4 fL (7.4-10.4) Prothrombin Time 12.3 SECONDS (9.0-12.0) Prothromb Time International Ratio 1.1 (0.9-1.1) Activated Partial Thromboplast Time 34.5 SECONDS (21.0-31.0) Partial Thromboplastin Ratio 1.3 Anion Gap 11.0 mmol/L (3-11) Est Creatinine Clear Calc Drug Dose 121.0 ml/min Estimated GFR () 127.5 Estimated GFR (Non- 110.0 BUN/Creatinine Ratio 13.1 (10-20) Calcium Level 10.2 mg/dl (8.5-10.1) Laboratory results reviewed by me. Medications Administered Medications (Trade) Dose Ordered Sig/Selam Route Start Time Stop Time Status Last Admin Dose Admin Ondansetron HCl 4 mg 4 mg NOW STAT IV 10/25/16 15:08 10/25/16 15:11 DC 10/25/16 15:21 4 MG Sodium Chloride (Nss 1000ml) 1,000 ml @ 999 mls/hr Q1H1M STAT IV 10/25/16 15:08 10/25/16 16:08 DC 10/25/16 15:22 999 MLS/HR Acetaminophen (Tylenol Tab) 1,000 mg NOW STAT PO 10/25/16 15:08 10/25/16 15:11 DC 10/25/16 15:21 1,000 MG Norethindrone Acetate (Aygestin Tab) 10 mg ONE STAT PO 10/25/16 15:45 10/25/16 15:46 DC 10/25/16 16:11 10 MG Lorazepam (Ativan Inj) 0.5 mg NOW STAT IV 10/25/16 15:45 10/25/16 15:46 DC 10/25/16 16:10 0.5 MG ECG Indication: other (vaginal bleeding) Rate (beats per minute): 59 Rhythm: sinus bradycardia Findings: no acute ischemic change, no ectopy ED Course 1502: The patient was evaluated in room A3. A complete history and physical exam was performed. 1508: Ordered Acetaminophen 1,000 mg PO, NSS 1,000 ml @ 999 mls/hr IV, and Zofran Inj 4 mg IV. 1533: I spoke with Dr. Rawls and he would like the patient to be seen in his office tomorrow. 1544: The patient agreed to take hormones. 1545: Ordered Ativan Inj 0.5 mg IV, and Aygestin Tab 10 mg PO. 1603: The housing case manager is still working on an appointment. 1650: Reevaluated the patient. Discussed results and discharge instructions: She verbalized understanding and agreement. The patient is ready for discharge. Medical Decision Differentials include anemia, dehydration, coagulopathy, electrolyte imbalance, dysrhythmia, and hypertension. There is no leukocytosis or concerning anemia. No significant electrolyte abnormality or kidney failure. No coagulopathy. Orthostatic vital signs are negative. EKG shows a sinus bradycardia, no acute ischemia. Chest x-ray shows no mediastinal widening, pneumonia or pneumothorax. The patient presents with heavier vaginal bleeding which actually is better now than it was earlier. She is on Xarelto. Her vital signs are stable and her laboratory testing is reassuring. She was given IV saline, IV Zofran, IV Ativan. She was given a dose of oral Aygestin. She received oral Tylenol. I talked to the on-call OFFICE NURSE PRACTITIONER doctor. The patient is to be on Aygestin daily. The patient will be seen in the office in 2 days timeframe for a recheck. She should treat this as a heavy period. There is no reason for hospitalization. The patient was reassured and discharged home, she will return for worsening symptoms. Consults Time Called: [phone] Consulting Physician: Ebony Alford Returned Call: [phone] Rawls and he would like the patient to be seen in his office tomorrow. Impression Primary Impression: Vaginal bleeding Additional Impression: Coagulopathy Scribe Attestation The scribe's documentation has been prepared under my direction and personally reviewed by me in its entirety. I confirm that the note above accurately reflects all work, treatment, procedures, and medical decision making performed by me. Departure Information Dispostion Home / Self-Care Prescriptions Norethindrone Acetate (AYGESTIN) 5 Mg Tab 2 TAB PO DAILY for 21 Days, #42 TAB 6 Refills Prov: Serjio Lay M.D. 10/25/16 Referrals Kimber Sawyer DO (PCP) Patient Instructions A Signature Page, [facility] Additional Instructions start aygestin as prescribed see blowing weasand as scheduled rest return if worsening as we discussed blood testing today was all ok Problem Qualifiers
--- NOTE | 2016-10-25 16:27 | DIAGNOSTIC IMAGING REPORT ---
CHEST ONE VIEW PORTABLE CLINICAL HISTORY: Chest tightness. COMPARISON STUDY: Chest CT October 19, 2016 and chest radiograph October 21, 2016. FINDINGS: Lung volumes are normal. Lungs are clear. There is no pneumothorax or pleural effusion. Cardiac size is normal. Mediastinal contours are normal. There is no evidence of pulmonary edema. IMPRESSION: No acute cardiopulmonary findings. Electronically signed by: Radames Vital M.D. 10/25/2016 4:25 PM Dictated Date/Time: 10/25/2016 4:20 PM
[2016-10-25] MEDS ORDERED: AYG/5 PO (16:48)
[2016-10-25 16:59] VITALS: BP 98/60; PULSE 62; O2SAT 99
[2016-10-25] MEDS ORDERED: PRENTAB26 PO (17:03)
[2016-10-25] MEDS ORDERED: CLON1TAB3 PO (19:48)
[2016-10-25] MEDS ORDERED: BACK CREAM TOP (20:49)
[2016-10-25] MEDS ORDERED: DOXY100C76 PO (20:49)
[2016-10-25] MEDS ORDERED: CYAN100020 PO (20:49)
[2017-01-17] MEDS ORDERED: ACET-749 PO (18:01)
[2017-01-17] MEDS ORDERED: GABA-112 PO (18:01)
[2017-01-17] MEDS ORDERED: BENZ60GE TOP (18:15)
== END 2016-10-25 17:16 | disposition home or self-care (01) ==
LOC: EDBD 14:49 → C.EDA 14:54
DX: N93.9 Abnormal uterine and vaginal bleeding, unspecified (principal); D68.9 Coagulation defect, unspecified; Z86.711 Personal history of pulmonary embolism; Z87.891 Personal history of nicotine dependence

== ENCOUNTER 2016-11-19 15:26 | Emergency (ER) | payer OTHER ==
[~2016-11-19] VITALS: Ht 160 cm; Wt 79.7 kg
[~2016-11-19 15:26] MED LIST changes: +AYG/5 PO; +BACK CREAM TOP; +CLON1TAB3 PO; +CYAN100020 PO; +DOXY100C76 PO; +PRENTAB26 PO; +RIVA1TAB4 PO; -XRL15 PO
[2016-11-19 15:43] VITALS: TEMP 37.1; Ht 160 cm; Wt 79.7 kg
[2016-11-19] MEDS ORDERED: SODIUM CHLORIDE 0.9% 1000ML 1,000 ML IV STA (16:42)
[2016-11-19] MEDS ORDERED: SODIUM CHLORIDE 0.9% 500ML 500 ML IV STA (16:42)
[2016-11-19] MEDS ORDERED: FLUO10CA48 PO (17:03)
[2016-11-19 17:09] LABS: BASO % 0.2 %; BASO ABS # 0.01 K/uL (0-0.2); COMPLETE YES; EOS % 1.7 %; HEMATOCRIT 33.9 % (37-47); IG% 0.2 %; LYMPH % 42.2 %; LYMPH ABS # 1.74 K/uL (1.2-3.4); MEAN CELL VOLUME 96.9 fL (80-100); MEAN CORPUSCULAR HEMOGLOBIN 33.4 pg (25-34); MEAN CORPUSCULAR HGB CONC 34.5 g/dl (32-36); MEAN PLATELET VOLUME 9.5 fL (7.4-10.4); MONO % 4.6 %; NEUT % 51.1 %; PLATELET COUNT 209 K/uL (130-400); WHITE BLOOD COUNT 4.12 K/uL (4.8-10.8)
[2016-11-19 17:10] LABS: INR 1.1 (0.9-1.1); PARTIAL THROMBOPLASTIN RATIO 1.4; PROTHROMBIN TIME (PATIENT) 12.1 SECONDS (9.0-12.0)
[2016-11-19 17:32] LABS: CALCIUM 9.2 mg/dl (8.5-10.1); CREATININE 0.89 mg/dl (0.60-1.20); POTASSIUM 3.7 mmol/L (3.5-5.1)
--- NOTE | 2016-11-19 17:33 | EMERGENCY ROOM VISIT NOTE ---
History Report prepared by Esa: Freda Solis Under the Supervision of: Dr. Madeline Pineda M.D. First contact with patient: 16:30 Chief Complaint: CHEST PAIN Stated Complaint: HEADACHE,CHEST PAINS,LIGHTHEADED A PE IN LUNG Nursing Triage Summary: hx of blood clots is currently taking blood thinners. I have had my period for the past month. I have emailed my dr multiple times about this. I have pain in my lower right calf. I think I have another clot in my lung History of Present Illness The patient is a 35 year old female who presents to the Emergency Room with complaints of persistent chest pain with onset today the patient has also had cramping in her arms and legs for 1.5 weeks. The patient rates her discomfort as an 8/10. For 1.5 weeks, the patient has had cramps in her arms and legs, with pain in her right leg. The patient notes that she has been light headed and dizzy. The patient currently has a clot in her lungs. She was admitted to the hospital for this. The patient is currently on medication for the blood clot , taking Xarelto. She states that she is taking medication as prescribed. The patient is concerned that her symptoms may be due to another blood clot. The patient notes that she has been on her period for almost one month. She is currently passing blood clots. The patient's IUD fell out one week ago. Her OBGYN made her an appointment once she called them about this. She is having abdominal cramps, headaches, and nausea. The patient denies swelling in her legs. Source of History: patient Onset: 1 day ago Position: chest Symptom Intensity: 8/10 Quality: other (chest pain) Timing: other (persistent) Associated Symptoms: + SOB, + headache, + nausea Note: The patient notes that she has been on her period for almost one month. She is currently passing blood clots. The patient's IUD fell out one week ago. She denies swelling in her legs. Review of Systems See HPI for pertinent positives & negatives. A total of 10 systems reviewed and were otherwise negative. Past Medical & Surgical Medical Problems: (1) Chest pain (2) Mily-rectal abscess (3) Pleuritic chest pain Surgical Problems: (1) S/P tubal ligation Family History FH: cancer FHx: diabetes mellitus FHx: heart disease FHx: seizures Social History Smoking Status: Former Smoker Drug Use: none Marital Status: Housing Status: lives with family Occupation Status: unemployed Current/Historical Medications Scheduled Cyanocobalamin (Vitamin B12), 1 TAB PO DAILY Doxycycline Monohydrate (Monodox), 50 MG PO DAILY Multivit/Min/Iron/Fol Ac/Pren ( Vitamin), 1 TAB PO DAILY Rivaroxaban (Xarelto), 20 MG PO QAM [Back Cream], 1 APPLN TOP UD Scheduled PRN Clonazepam (Klonopin), 1 MG PO TID PRN for Anxiety Fluoxetine (Prozac), 10 MG PO QAM PRN for ANXIETY Allergies Coded Allergies: No Known Allergies (Verified , 11/19/16) Physical Exam Vital Signs Date Time Temp Pulse Resp B/P Pulse Ox O2 Delivery O2 Flow Rate FiO2 11/19/16 20:18 65 18 94/55 96 11/19/16 18:46 59 14 113/69 96 Room Air 11/19/16 17:06 68 16 108/69 98 Room Air 58 102/66 64 100/73 11/19/16 17:05 67 11/19/16 15:43 37.1 85 18 118/78 98 Room Air Physical Exam Vital signs reviewed. General: Well-appearing female, in no significant distress. HEENT: No scleral icterus, PERRLA, neck supple. Atraumatic. Cardiovascular: Regular rate and rhythm, no extra sounds. Pulmonary: Clear to auscultation bilaterally, normal work of breathing. Abdomen: Soft, nontender, nondistended, positive bowel sounds. Musculoskeletal: Atraumatic, no peripheral edema. Neurologic: Patient awake alert and oriented x 3, full strength in all 4 extremities. Cranial nerves 2 through 12 grossly intact. Skin: Warm, dry, no rash Medical Decision & Procedures ER Provider Diagnostic Interpretation: Ultrasound results as stated below per interpretation by me and the radiologist : BILATERAL LOWER EXTREMITY VENOUS DOPPLER HISTORY: Pain. Edema. BLE cramping, recent PE COMPARISON STUDY: 10/20/2016 FINDINGS: There is normal compressibility, flow, and augmentation within the bilateral lower extremity deep venous systems. IMPRESSION: No DVT within the right or left lower extremity. Electronically signed by: Dev Martins M.D. 11/19/2016 6:08 PM Dictated Date/Time: 11/19/2016 6:07 PM Laboratory Results 11/19/16 16:40 Red Blood Count 3.50, Mean Corpuscular Volume 96.9, Mean Corpuscular Hemoglobin 33.4, Mean Corpuscular Hemoglobin Concent 34.5, Mean Platelet Volume 9.5, Neutrophils (%) (Auto) 51.1, Lymphocytes (%) (Auto) 42.2, Monocytes (%) (Auto) 4.6, Eosinophils (%) (Auto) 1.7, Basophils (%) (Auto) 0.2, Neutrophils # (Auto) 2.10, Lymphocytes # (Auto) 1.74, Monocytes # (Auto) 0.19, Eosinophils # (Auto) 0.07, Basophils # (Auto) 0.01 11/19/16 16:40 Test 11/19/16 16:40 White Blood Count 4.12 K/uL (4.8-10.8) Red Blood Count 3.50 M/uL (4.2-5.4) Hemoglobin 11.7 g/dL (12.0-16.0) Hematocrit 33.9 % (37-47) Mean Corpuscular Volume 96.9 fL (80-100) Mean Corpuscular Hemoglobin 33.4 pg (25-34) Mean Corpuscular Hemoglobin Concent 34.5 g/dl (32-36) Platelet Count 209 K/uL (130-400) Mean Platelet Volume 9.5 fL (7.4-10.4) Neutrophils (%) (Auto) 51.1 % Lymphocytes (%) (Auto) 42.2 % Monocytes (%) (Auto) 4.6 % Eosinophils (%) (Auto) 1.7 % Basophils (%) (Auto) 0.2 % Neutrophils # (Auto) 2.10 K/uL (1.4-6.5) Lymphocytes # (Auto) 1.74 K/uL (1.2-3.4) Monocytes # (Auto) 0.19 K/uL (0.11-0.59) Eosinophils # (Auto) 0.07 K/uL (0-0.5) Basophils # (Auto) 0.01 K/uL (0-0.2) RDW Standard Deviation 44.8 fL (36.4-46.3) RDW Coefficient of Variation 12.8 % (11.5-14.5) Immature Granulocyte % (Auto) 0.2 % Immature Granulocyte # (Auto) 0.01 K/uL (0.00-0.02) Prothrombin Time 12.1 SECONDS (9.0-12.0) Prothromb Time International Ratio 1.1 (0.9-1.1) Activated Partial Thromboplast Time 36.9 SECONDS (21.0-31.0) Partial Thromboplastin Ratio 1.4 Anion Gap 9.0 mmol/L (3-11) Est Creatinine Clear Calc Drug Dose 89.9 ml/min Estimated GFR () 98.7 Estimated GFR (Non- 85.2 BUN/Creatinine Ratio 10.0 (10-20) Calcium Level 9.2 mg/dl (8.5-10.1) Total Bilirubin 0.7 mg/dl (0.2-1) Direct Bilirubin 0.1 mg/dl (0-0.2) Aspartate Amino Transf (AST/SGOT) 20 U/L (15-37) Alanine Aminotransferase (ALT/SGPT) 23 U/L (12-78) Alkaline Phosphatase 82 U/L (45-117) Total Protein 8.4 gm/dl (6.4-8.2) Albumin 4.1 gm/dl (3.4-5.0) Laboratory results per my review. Medications Administered Medications (Trade) Dose Ordered Sig/Selam Route Start Time Stop Time Status Last Admin Dose Admin Sodium Chloride 500 ml @ 999 mls/hr Q31M STAT IV 11/19/16 16:42 11/19/16 17:12 DC 11/19/16 17:05 999 MLS/HR Sodium Chloride (Nss 1000ml) 1,000 ml @ 125 mls/hr Q8H STAT IV 11/19/16 16:42 11/19/16 21:08 DC 11/19/16 17:28 125 MLS/HR ECG Indication: chest pain Rate (beats per minute): 62 Rhythm: normal sinus Findings: no acute ischemic change, no ectopy Change: Repeat EKG: Sinus bradycardia at a rate of 58, no ectopy, no ischemia. ED Course 1640: Past medical records reviewed. The patient was evaluated in room C8. A complete history and physical examination was performed. 164: Sodium Chloride 1000 ml @ 125 mls/hr IV, Sodium Chloride 500 ml @ 999 mls/ hr IV 6: Upon reevaluation, the patient appeared to have improvement of her symptoms. I discussed findings with the patient. She verbalized agreement of the treatment plan. The patient was discharged home. Medical Decision The patient is a 35 year old female who presents to the ED with complaints of chest pain and leg and arm cramping. Differentials include: Differential diagnosis: Etiologies such as benign positional vertigo, dehydration, hypovolemia, anemia, tumor, infection, hypoglycemia, electrolyte abnormalities, cardiac sources, intracerebral event, toxicologic, neurologic, as well as others were entertained. This patient was evaluated and appeared to be in no distress. Physical examination is fairly unrevealing. The patient was placed on the quality assurance monitor and found to be in a normal sinus rhythm. She was hydrated with normal saline solution. Ultrasound bilateral lower extremities was performed and is negative for DVT. Chest x-ray is clear. EKG reveals a sinus rhythm. There is no ectopy or ischemia. The patient was informed of the findings. She continues to be very anxious about her symptoms. She states she is taking her Xarelto as prescribed. At this time there is no sign that the clot has propagated or that the patient has a DVT. I do think some of her presentation is related to the anxiety of the most recent illness. Patient was comfortable with the plan for discharge. She will return to the ER for worsening of symptoms or any medical concerns. Impression Primary Impression: Non-cardiac chest pain Scribe Attestation The scribe's documentation has been prepared under my direction and personally reviewed by me in its entirety. I confirm that the note above accurately reflects all work, treatment, procedures, and medical decision making performed by me. Departure Information Dispostion Home / Self-Care Referrals Kimber Sawyer DO (PCP) Forms HOME CARE DOCUMENTATION FORM, IMPORTANT VISIT INFORMATION Patient Instructions My [facility] Additional Instructions Diagnosis: Noncardiac chest pain Continue Xarelto as prescribed. Drink plenty of clear fluids Wear support stockings while on your feet. Follow-up with your physician for reevaluation. Return to the ER for worsening of symptoms or any medical concerns.
--- NOTE | 2016-11-19 18:09 | DIAGNOSTIC IMAGING REPORT ---
BILATERAL LOWER EXTREMITY VENOUS DOPPLER HISTORY: Pain. Edema. BLE cramping, recent PE COMPARISON STUDY: 10/20/2016 FINDINGS: There is normal compressibility, flow, and augmentation within the bilateral lower extremity deep venous systems. IMPRESSION: No DVT within the right or left lower extremity. Electronically signed by: Dev Martins M.D. 11/19/2016 6:08 PM Dictated Date/Time: 11/19/2016 6:07 PM
[2016-11-19 20:18] VITALS: BP 94/55; PULSE 65; O2SAT 96
[2017-01-17] MEDS ORDERED: GABA-112 PO (18:01)
[2017-01-17] MEDS ORDERED: ACET-749 PO (18:01)
[2017-01-17] MEDS ORDERED: BENZ60GE TOP (18:15)
== END 2016-11-19 20:20 | disposition home or self-care (01) ==
LOC: C.EDB 15:27 → C.EDC 20:20
DX: R07.89 Other chest pain (principal); I26.99 Other pulmonary embolism without acute cor pulmonale; Z79.01 Long term (current) use of anticoagulants; Z87.891 Personal history of nicotine dependence; Z79.899 Other long term (current) drug therapy

== ENCOUNTER 2017-01-17 17:21 | Emergency (ER) | payer OTHER ==
[~2017-01-17] VITALS: Ht 161.3 cm; Wt 83.0 kg
[~2017-01-17 17:21] MED LIST changes: -AYG/5 PO; -CLON1TAB3 PO; -CYAN100020 PO; -DOXY100C76 PO
[2017-01-17 17:25] VITALS: TEMP 36.7; Ht 161.3 cm; Wt 83.0 kg
[2017-01-17] MEDS ORDERED: ONDANSETRON INJ 2 MG/ML 2 ML VIAL IV STA (17:37)
[2017-01-17] MEDS ORDERED: MoRPHine SULFATE 10 MG/ML CARP/VIAL IV STA ×2 (17:37→19:05)
[2017-01-17] MEDS ORDERED: SODIUM CHLORIDE 0.9% 1000ML 1,000 ML IV STA (17:37)
[2017-01-17] MEDS ORDERED: OPTIRAY 320 IV PRN (17:45)
[2017-01-17 18:07] VITALS: O2SAT 98
[2017-01-17 18:07] LABS: BASO % 0.2 %; BASO ABS # 0.01 K/uL (0-0.2); COMPLETE YES; EOS % 1.4 %; HEMATOCRIT 29.3 % (37-47); LYMPH % 49.8 %; LYMPH ABS # 2.41 K/uL (1.2-3.4); MEAN CELL VOLUME 93.3 fL (80-100); MEAN CORPUSCULAR HEMOGLOBIN 31.5 pg (25-34); MEAN CORPUSCULAR HGB CONC 33.8 g/dl (32-36); MONO % 4.3 %; NEUT % 44.3 %; PLATELET COUNT 243 K/uL (130-400); RED BLOOD COUNT 3.14 M/uL (4.2-5.4); WHITE BLOOD COUNT 4.84 K/uL (4.8-10.8)
[2017-01-17 18:19] LABS: PREG INTERNAL NEGATIVE QC NEG CLEAR BACKGROUND; PREG INTERNAL POSITIVE QC POS CONTROL LINE
[2017-01-17 18:20] LABS: ISTAT CREATININE 0.8 mg/dl (0.6-1.3); ISTAT HEMOGLOBIN 10.5 g/dl (12.0-16.0); ISTAT IONIZED CALCIUM 1.19 mmol/l (1.12-1.32)
[2017-01-17 18:32] LABS: ALT/SGPT 20 U/L (12-78); BLOOD UREA NITROGEN 8 mg/dl (7-18); BUN/CREATININE RATIO 8.7 (10-20); CALCIUM 8.8 mg/dl (8.5-10.1); CARBON DIOXIDE 28 mmol/L (21-32); CHLORIDE 105 mmol/L (98-107); CREATININE 0.89 mg/dl (0.60-1.20); GLUCOSE 84 mg/dl (70-99); POTASSIUM 4.3 mmol/L (3.5-5.1); SODIUM 140 mmol/L (136-145)
[2017-01-17 18:35] LABS: ALKALINE PHOSPHATASE 79 U/L (45-117); AST/SGOT 20 U/L (15-37)
--- NOTE | 2017-01-17 18:36 | DIAGNOSTIC IMAGING REPORT ---
CHEST CTA for PULMONARY ARTERIES CT DOSE: 314.72 mGy.cm HISTORY: Chest pain dyspnea TECHNIQUE: Multiaxial CT images of the chest were performed following the intravenous administration of contrast to evaluate the pulmonary arteries. Maximal intensity projection images were also obtained. COMPARISON STUDY: None. FINDINGS: There is a normal caliber thoracic aorta with no evidence for dissection. There is no evidence for pulmonary embolus. No pleural effusions. No pneumothorax. The liver and spleen are unremarkable. No mediastinal or hilar lymphadenopathy. The central airways are patent. The lungs are clear. IMPRESSION: No evidence for pulmonary embolus. The lungs are clear Electronically signed by: Dev Martins M.D. 01/17/2017 6:35 PM Dictated Date/Time: 01/17/2017 6:32 PM
[2017-01-17] MEDS ORDERED: HYDR5SYP11 PO (18:52)
[2017-01-17] MEDS ORDERED: KETOROLAC TROMETHAMINE 30 MG/ML VIAL IV STA (19:00)
[2017-01-17] MEDS ORDERED: KETOROLAC TROMETHAMINE 30 MG/ML VIAL ONE (19:07)
--- NOTE | 2017-01-17 19:52 | EMERGENCY ROOM VISIT NOTE ---
History First contact with patient: 17:30 Chief Complaint: CARDIAC ASSESSMENT Stated Complaint: CHEST/BACK PAIN,HEADACHE,LIGHTHEADED, CRAMPING Nursing Triage Summary: Right sided CP since 8 a.m. Hx of PE. History of Present Illness The patient is a 36 year old female who presents to the Emergency Room with complaints of chest pain. The patient is concerned over chest pain that is reproducible on chest examination. The patient is concerned that she has a history of blood clots and has been on Xarelton she reports that the pain has been ongoing since at least 8 AM. She has not taken anything for the pain. The patient didn't go to work today. Nothing seems to make the pain any better or worse except breathing. Physical exertion does not make the pain worse. In addition the patient is also complaining of a very long menstrual. That has been ongoing since she had an IUD placed. The patient has no other complaints. Review of Systems See HPI for pertinent positives & negatives. A total of 10 systems reviewed and were otherwise negative. Past Medical/Surgical History Medical Problems: (1) Chest pain (2) Mily-rectal abscess (3) Pleuritic chest pain Surgical Problems: (1) S/P tubal ligation Family History FH: cancer FHx: diabetes mellitus FHx: heart disease FHx: seizures Social History Smoking Status: Never Smoker Drug Use: none Marital Status: Housing Status: lives with family Occupation Status: unemployed Current/Historical Medications Scheduled Benzoyl Peroxide (Benzoyl Peroxide), 0 TOP UD Cyanocobalamin (Vitamin B12), 1 TAB PO DAILY Doxycycline Monohydrate (Monodox), 50 MG PO DAILY Fluoxetine (Prozac), 20 MG PO QAM Gabapentin (Neurontin), 200 MG PO HS Multivit/Min/Iron/Fol Ac/Pren ( Vitamin), 1 TAB PO DAILY Rivaroxaban (Xarelto), 20 MG PO QAM Scheduled PRN Acetaminophen/Codeine (Tylenol W/Codeine #3), 1 TAB PO UD PRN for Pain Clonazepam (Klonopin), 1 MG PO TID PRN for Anxiety Hydrocodone W/ Homatropine (Hycodan 5/1.5MG 5 Ml), 5 ML PO HS PRN for Pain Allergies Coded Allergies: No Known Allergies (Verified , 01/17/17) Physical Exam Vital Signs Date Time Temp Pulse Resp B/P Pulse Ox O2 Delivery O2 Flow Rate FiO2 01/17/17 18:59 54 14 106/64 99 Room Air 01/17/17 18:15 98 Room Air 01/17/17 18:07 98 Room Air 01/17/17 18:07 98 Room Air 01/17/17 17:45 72 01/17/17 17:25 36.7 71 18 117/81 100 Room Air Physical Exam GENERAL: Patient is a healthy-appearing well-nourished HEAD: Normocephalic atraumatic EYES: Ocular movements intact pupils equal and react to light OROPHARYNX mucous membranes are moist no exudates present no erythema or edema present NECK: Supple no nuchal rigidity CHEST: Good equal expansion, tender to palpation LUNGS: Clear and equal to auscultation CARDIAC: Normal S1 and S2 ABDOMEN: Soft nontender no guarding BACK: No CVA tenderness EXTREMITIES: No pain upon palpation normal muscle strength in all groups no clubbing cyanosis or edema NEURO: Patient is following commands is answering questions appropriately. Alert and oriented x3 Cranial Nerves 2-12 grossly intact Medical Decision & Procedures Laboratory Results 01/17/17 17:55 Red Blood Count 3.14, Mean Corpuscular Volume 93.3, Mean Corpuscular Hemoglobin 31.5, Mean Corpuscular Hemoglobin Concent 33.8, Mean Platelet Volume 9.0, Neutrophils (%) (Auto) 44.3, Lymphocytes (%) (Auto) 49.8, Monocytes (%) (Auto) 4.3, Eosinophils (%) (Auto) 1.4, Basophils (%) (Auto) 0.2, Neutrophils # (Auto) 2.14, Lymphocytes # (Auto) 2.41, Monocytes # (Auto) 0.21, Eosinophils # (Auto) 0.07, Basophils # (Auto) 0.01 01/17/17 17:55 Test 01/17/17 17:55 01/17/17 17:58 01/17/17 18:02 White Blood Count 4.84 K/uL (4.8-10.8) Red Blood Count 3.14 M/uL (4.2-5.4) Hemoglobin 9.9 g/dL (12.0-16.0) Hematocrit 29.3 % (37-47) Mean Corpuscular Volume 93.3 fL (80-100) Mean Corpuscular Hemoglobin 31.5 pg (25-34) Mean Corpuscular Hemoglobin Concent 33.8 g/dl (32-36) Platelet Count 243 K/uL (130-400) Mean Platelet Volume 9.0 fL (7.4-10.4) Neutrophils (%) (Auto) 44.3 % Lymphocytes (%) (Auto) 49.8 % Monocytes (%) (Auto) 4.3 % Eosinophils (%) (Auto) 1.4 % Basophils (%) (Auto) 0.2 % Neutrophils # (Auto) 2.14 K/uL (1.4-6.5) Lymphocytes # (Auto) 2.41 K/uL (1.2-3.4) Monocytes # (Auto) 0.21 K/uL (0.11-0.59) Eosinophils # (Auto) 0.07 K/uL (0-0.5) Basophils # (Auto) 0.01 K/uL (0-0.2) RDW Standard Deviation 42.8 fL (36.4-46.3) RDW Coefficient of Variation 12.6 % (11.5-14.5) Immature Granulocyte % (Auto) 0.0 % Immature Granulocyte # (Auto) 0.00 K/uL (0.00-0.02) Est Creatinine Clear Calc Drug Dose 91.9 ml/min Estimated GFR () 98.0 Estimated GFR (Non- 84.6 BUN/Creatinine Ratio 8.7 (10-20) Calcium Level 8.8 mg/dl (8.5-10.1) Total Bilirubin 0.3 mg/dl (0.2-1) Direct Bilirubin mg/dl (0-0.2) Aspartate Amino Transf (AST/SGOT) 20 U/L (15-37) Alanine Aminotransferase (ALT/SGPT) 20 U/L (12-78) Alkaline Phosphatase 79 U/L (45-117) Total Creatine Kinase 84 U/L (26-192) Creatine Kinase MB < 0.5 ng/ml (0.5-3.6) Creatine Kinase MB Ratio (0-3.0) Troponin I < 0.015 ng/ml (0-0.045) Total Protein 7.8 gm/dl (6.4-8.2) Albumin 4.0 gm/dl (3.4-5.0) Lipase 165 U/L (73-393) Human Chorionic Gonadotropin, Qual NEG (NEG) Chemistry Specimen Hemolysis Bedside D-Dimer 433 ng/mlFEU (0-450) Bedside Hemoglobin 10.5 g/dl (12.0-16.0) Bedside Hematocrit 31 % (37-47) Bedside Sodium 141 mEq/L (135-144) Bedside Potassium 3.7 mEq/L (3.3-5.0) Bedside Chloride 100 mEq/L (101-112) Bedside Total CO2 25 mEq/l (24-31) Anion Gap 20.0 mmol/L (16-25) Bedside Blood Urea Nitrogen 7 mg/dl (7-18) Bedside Creatinine 0.8 mg/dl (0.6-1.3) Bedside Glucose (other) 85 mg/dl (70-99) Bedside Ionized Calcium (Emma) 1.19 mmol/l (1.12-1.32) Medications Administered Medications (Trade) Dose Ordered Sig/Selam Route Start Time Stop Time Status Last Admin Dose Admin Sodium Chloride (Nss 1000ml) 1,000 ml @ 999 mls/hr Q1H1M STAT IV 01/17/17 17:37 01/17/17 18:37 DC 01/17/17 18:11 999 MLS/HR Morphine Sulfate (MoRPHine SULFATE INJ) 8 mg NOW STAT IV 01/17/17 17:37 01/17/17 17:39 DC 01/17/17 18:12 8 MG Ondansetron HCl (Zofran Inj) 4 mg NOW STAT IV 01/17/17 17:37 01/17/17 17:39 DC 01/17/17 18:11 4 MG Morphine Sulfate (MoRPHine SULFATE INJ) 8 mg NOW STAT IV 01/17/17 19:05 01/17/17 19:06 DC 01/17/17 19:05 8 MG ECG Indication: chest pain Rate (beats per minute): 66 Rhythm: normal sinus Findings: no acute ischemic change, no ectopy Medical Decision This is a 36-year-old female who presents emergency department complaining of chest pain. The patient is concerned given her history of blood clots. I first tried to rule out the patient using a d-dimer however the patient is insisting on a CAT scan to see the status of her existing blood clots. Even though the patient's d-dimer is normal she is still insisting on a CAT scan. For this reason the patient was sent for CAT scan of the chest this did not show any acute abnormality. As the patient's chest pain has been ongoing for longer than 8 hours I would expect her troponin CK and MB fractions to be elevated if this were related to her heart as such they are not. An IV was established, patient given 8 mg of morphine 2. I do feel that the patient as well as that she can be safely discharged home for follow-up with her primary care physician. I stressed the need for follow-up with cardiology and to have no strenuous activity until that follow-up. Patient was in agreement with the treatment plan. Impression Primary Impression: Chest pain Departure Information Dispostion Home / Self-Care Condition GOOD Prescriptions Hydrocodone W/ Homatropine (HYCODAN 5/1.5MG 5 ML) 1 Syp Syp 5 ML PO HS Y for Pain, #120 ML Prov: Nagi Wright MD 01/17/17 Referrals Kimber Sawyer DO (PCP) Arnoldo Mathew M.D. Forms School Instructions, Work Instructions, IMPORTANT VISIT INFORMATION Patient Instructions My [facility], ED Chest Pain Costochondritis Additional Instructions Follow up with Dr Mathew's office Take 1000 mg Tylenol every 6 hours Take Hycodan for breakthrough pain You have been examined and treated today on an emergency basis only. This is not a substitute for, or an effort to provide, complete comprehensive medical care. It is impossible to recognize and treat all injuries or illnesses in a single emergency department visit. It is therefore important that you follow up closely with Dr Sawyer. Call as soon as possible for an appointment. Thank you for your time and consideration. I look forward to speaking with you again soon. Please don't hesitate to call us if you have any questions. Problem Qualifiers Primary Impression: Chest pain Chest pain type: chest pain on breathing Qualified Codes: R07.1 - Chest pain on breathing
[2017-01-17 20:03] VITALS: BP 97/65; PULSE 52; O2SAT 100
== END 2017-01-17 20:05 | disposition home or self-care (01) ==
LOC: C.EDB 17:23 → C.EDA 20:05
DX: R07.1 Chest pain on breathing (principal); Z83.3 Family history of diabetes mellitus; Z82.49 Family history of ischemic heart disease and other diseases of the circulatory system; Z82.0 Family history of epilepsy and other diseases of the nervous system

== ENCOUNTER 2017-08-30 16:52 | Emergency (ER) | payer OTHER ==
[~2017-08-30] VITALS: Ht 160 cm; Wt 91.0 kg
[~2017-08-30 16:52] MED LIST changes: -BACK CREAM TOP
[2017-08-30 16:55] VITALS: TEMP 36.5; Ht 160 cm; Wt 91.0 kg
[2017-08-30] MEDS ORDERED: FLUO10CA48 PO (17:03)
[2017-08-30] MEDS ORDERED: DiphenhydrAMINE HCL 50 MG/ML VIAL IV STA (18:00)
[2017-08-30] MEDS ORDERED: PROCHLORPERAZINE 5 MG/ML 2 ML VIAL IV STA (18:00)
[2017-08-30] MEDS ORDERED: KETOROLAC TROMETHAMINE 30 MG/ML VIAL IV STA (18:00)
[2017-08-30] MEDS ORDERED: SODIUM CHLORIDE 0.9% 1000ML 1,000 ML IV STA (18:00)
[2017-08-30] MEDS ORDERED: DEXAMETHASONE INJ 10 MG in SYRINGE 0 ML IV STA (18:00)
[2017-08-30] MEDS ORDERED: ACET-749 PO (18:01)
[2017-08-30] MEDS ORDERED: GABA-112 PO (18:01)
[2017-08-30] MEDS ORDERED: DEXAMETHASONE **PF** INJ 10 MG/ML VIAL ONE (18:14)
[2017-08-30] MEDS ORDERED: BENZ60GE TOP (18:15)
[2017-08-30] MEDS ORDERED: PROT1POW PO (18:31)
[2017-08-30 18:33] LABS: BASO % 0.4 %; BASO ABS # 0.02 K/uL (0-0.2); COMPLETE YES; EOS % 1.9 %; HEMATOCRIT 35.6 % (37-47); IG% 0.2 %; LYMPH % 47.9 %; LYMPH ABS # 2.24 K/uL (1.2-3.4); MEAN CELL VOLUME 87.5 fL (80-100); MEAN CORPUSCULAR HEMOGLOBIN 27.3 pg (25-34); MEAN CORPUSCULAR HGB CONC 31.2 g/dl (32-36); MEAN PLATELET VOLUME 9.2 fL (7.4-10.4); MONO % 6.6 %; PLATELET COUNT 233 K/uL (130-400); RED BLOOD COUNT 4.07 M/uL (4.2-5.4); WHITE BLOOD COUNT 4.68 K/uL (4.8-10.8)
--- NOTE | 2017-08-30 18:35 | EMERGENCY ROOM VISIT NOTE ---
History Report prepared by Esa: Scottie Miranda Under the Supervision of: Dr. Serjio Lay M.D. First contact with patient: 17:49 Chief Complaint: HEADACHE Stated Complaint: MIGRAINE, SUPER DIZZY, FELT LIKE PASSING OUT History of Present Illness The patient is a 36 year old female who presents to the Emergency Room with complaints of intermittent headaches beginning four weeks ago. She localizes her pain to the front of her head. She also complains of photophobia and fatigue. The patient's pain began gradually and worsened. She states that she has been having recurrent headaches every day recently. She states that she has been having intermittent episodes of dizziness recently as well. She notes that she hit her head in a hotel shower four weeks ago and has had headaches since. The patient believes she likely lost consciousness during this fall. She denies fevers, cough, or visual changes. She was previously on blood thinners for PE, but stopped taking the medication four months ago. The patient is on Prozac and Klonopin. She is on chronic Doxycycline for skin infections. She denies chance of . Source of History: patient Onset: Four weeks ago Position: head (front of head) Timing: intermittent Associated Symptoms: + fatigue, No fevers, No cough Note: The patient also complains of photophobia and intermittent episodes of dizziness. She denies visual changes. Review of Systems See HPI for pertinent positives & negatives. A total of 10 systems reviewed and were otherwise negative. Past Medical & Surgical Medical Problems: (1) Chest pain (2) Mily-rectal abscess (3) Pleuritic chest pain Surgical Problems: (1) S/P tubal ligation Family History FH: cancer FHx: diabetes mellitus FHx: heart disease FHx: seizures Social History Smoking Status: Former Smoker Drug Use: none Marital Status: Housing Status: lives with family Occupation Status: unemployed Current/Historical Medications Scheduled Benzoyl Peroxide (Benzoyl Peroxide), 0 TOP UD Cyanocobalamin (Vitamin B12), 1 TAB PO DAILY Doxycycline Monohydrate (Monodox), 50 MG PO DAILY Fluoxetine (Prozac), 20 MG PO QAM Gabapentin (Neurontin), 100 MG PO HS Protein (Protein), 1 DOSE PO DAILY Scheduled PRN Acetaminophen/Codeine (Tylenol W/Codeine #3), 1 TAB PO UD PRN for Pain Clonazepam (Klonopin), 1 MG PO TID PRN for Anxiety Allergies Uncoded Allergies: UNKNOWN ANTIBIOTIC (Allergy, Severe, HIVES, 08/30/17) Physical Exam Vital Signs Date Time Temp Pulse Resp B/P (MAP) Pulse Ox O2 Delivery O2 Flow Rate FiO2 08/30/17 20:12 56 18 106/66 95 08/30/17 19:15 100/60 08/30/17 19:06 49 13 96 08/30/17 19:01 52 14 98/60 98 08/30/17 18:24 118/75 08/30/17 18:23 52 18 118/75 97 Room Air 08/30/17 16:55 36.5 63 20 99 Room Air Physical Exam GENERAL: Patient is in no acute distress. HEENT: No acute trauma, normocephalic atraumatic, mucous membranes moist, no nasal congestion, no scleral icterus. Pupils equal and reactive to light. NECK: No stridor, no adenopathy, no meningismus, trachea is midline. LUNGS: Clear to auscultation bilaterally, no wheeze, no rhonchi, breath sounds equal. HEART: Without murmurs gallops or rubs, regular rate and rhythm. ABDOMEN: Soft, nontender, bowel sounds positive, no hernias, no peritonitis. EXTREMITIES: No cyanosis or edema, full range of motion of all the joints without pain or difficulty, no signs for acute trauma. NEUROLOGIC: Oriented x 3, no acute motor or sensory deficits, no focal weakness. No cerebellar deficits. SKIN: No rash, no jaundice, no diaphoresis Medical Decision & Procedures ER Provider Diagnostic Interpretation: Radiology results as stated below per my review and radiologist interpretation: HEAD WITHOUT CONTRAST (CT) FINDINGS: Direct Support Staff topogram: Unremarkable. Ventricles and sulci normal in size. Brain parenchyma normal in appearance with preserved fong-white differentiation. No mass effect or midline shift. No hemorrhage or acute territorial infarct. No extra-axial fluid collection. Paranasal sinuses and mastoid air cells clear. Calvarium intact. IMPRESSION: 1. No acute intracranial abnormality. Electronically signed by: Vlad Edge M.D. 08/30/2017 6:39 PM (CHEST FOR PE) ANGIO WITH FINDINGS: CTA: Heart is normal in size without pericardial effusion. Thoracic aorta is normal in both course and caliber without aneurysm or dissection. The pulmonary arterial tree is opacified to the segmental branches and demonstrates no focal filling defects to suggest pulmonary thromboembolic disease. CT CHEST: Thyroid is homogeneous without dominant nodule. There is no pathologic adenopathy identified. There is no pneumothorax, pleural effusion or focal airspace consolidation. Costophrenic angle of the left lower lobe is noted. Mild dependent subsegmental bibasilar atelectasis. Minimal mosaic attenuation of the upper lobes suggests some air trapping. Central airways are patent. Imaged upper abdominal structures demonstrate no acute abnormality. Soft tissues are unremarkable. Bones appear intact. IMPRESSION: 1. No acute cardiopulmonary process, specifically no acute aortic pathology or evidence of pulmonary thromboembolic disease. 2. No lobar airspace consolidation to suggest pneumonia. The above report was generated using voice recognition software. It may contain grammatical, syntax or spelling errors. Electronically signed by: Jet Ac M.D. 08/30/2017 7:47 PM Laboratory Results 08/30/17 18:11 Red Blood Count 4.07, Mean Corpuscular Volume 87.5, Mean Corpuscular Hemoglobin 27.3, Mean Corpuscular Hemoglobin Concent 31.2, Mean Platelet Volume 9.2, Neutrophils (%) (Auto) 43.0, Lymphocytes (%) (Auto) 47.9, Monocytes (%) (Auto) 6.6, Eosinophils (%) (Auto) 1.9, Basophils (%) (Auto) 0.4, Neutrophils # (Auto) 2.01, Lymphocytes # (Auto) 2.24, Monocytes # (Auto) 0.31, Eosinophils # (Auto) 0.09, Basophils # (Auto) 0.02 08/30/17 18:11 Test 08/30/17 18:11 08/30/17 18:15 08/30/17 18:22 White Blood Count 4.68 K/uL (4.8-10.8) Red Blood Count 4.07 M/uL (4.2-5.4) Hemoglobin 11.1 g/dL (12.0-16.0) Hematocrit 35.6 % (37-47) Mean Corpuscular Volume 87.5 fL (80-100) Mean Corpuscular Hemoglobin 27.3 pg (25-34) Mean Corpuscular Hemoglobin Concent 31.2 g/dl (32-36) Platelet Count 233 K/uL (130-400) Mean Platelet Volume 9.2 fL (7.4-10.4) Neutrophils (%) (Auto) 43.0 % Lymphocytes (%) (Auto) 47.9 % Monocytes (%) (Auto) 6.6 % Eosinophils (%) (Auto) 1.9 % Basophils (%) (Auto) 0.4 % Neutrophils # (Auto) 2.01 K/uL (1.4-6.5) Lymphocytes # (Auto) 2.24 K/uL (1.2-3.4) Monocytes # (Auto) 0.31 K/uL (0.11-0.59) Eosinophils # (Auto) 0.09 K/uL (0-0.5) Basophils # (Auto) 0.02 K/uL (0-0.2) RDW Standard Deviation 55.1 fL (36.4-46.3) RDW Coefficient of Variation 17.1 % (11.5-14.5) Immature Granulocyte % (Auto) 0.2 % Immature Granulocyte # (Auto) 0.01 K/uL (0.00-0.02) Anion Gap 7.0 mmol/L (3-11) Est Creatinine Clear Calc Drug Dose 89.3 ml/min Estimated GFR () 90.6 Estimated GFR (Non- 78.1 BUN/Creatinine Ratio 13.6 (10-20) Calcium Level 8.7 mg/dl (8.5-10.1) Total Bilirubin 0.4 mg/dl (0.2-1) Aspartate Amino Transf (AST/SGOT) 19 U/L (15-37) Alanine Aminotransferase (ALT/SGPT) 27 U/L (12-78) Alkaline Phosphatase 92 U/L (45-117) Total Protein 8.0 gm/dl (6.4-8.2) Albumin 3.9 gm/dl (3.4-5.0) Globulin 4.1 gm/dl (2.5-4.0) Albumin/Globulin Ratio 1.0 (0.9-2) Thyroid Stimulating Hormone (TSH) 2.870 uIu/ml (0.300-4.500) Urine Color YELLOW Urine Appearance CLEAR (CLEAR) Urine pH 6.5 (4.5-7.5) Urine Specific [place] 1.011 (1.000-1.030) Urine Protein NEG (NEG) Urine Glucose (UA) NEG (NEG) Urine Ketones NEG (NEG) Urine Occult Blood NEG (NEG) Urine Nitrite NEG (NEG) Urine Bilirubin NEG (NEG) Urine Urobilinogen NEG (NEG) Urine Leukocyte Esterase NEG (NEG) Bedside D-Dimer > 450 ng/mlFEU (0-450) Laboratory results reviewed by me. Medications Administered Medications (Trade) Dose Ordered Sig/Selam Route Start Time Stop Time Status Last Admin Dose Admin Sodium Chloride 1,000 ml @ 999 mls/hr Q1H1M STAT IV 08/30/17 18:00 08/30/17 19:00 DC 08/30/17 18:17 999 MLS/HR Diphenhydramine HCl (Benadryl Inj) 50 mg NOW STAT IV 08/30/17 18:00 08/30/17 18:04 DC 08/30/17 18:16 50 MG Prochlorperazine Edisylate (Compazine Inj) 10 mg NOW STAT IV 08/30/17 18:00 08/30/17 18:04 DC 08/30/17 18:16 10 MG Ketorolac Tromethamine (Toradol Inj) 30 mg NOW STAT IV 08/30/17 18:00 08/30/17 18:04 DC 08/30/17 18:16 30 MG Dexamethasone Sodium Phosphate (Dexamethasone Inj Pf) 10 mg STK-MED ONCE .ROUTE 08/30/17 18:14 08/30/17 18:15 DC 08/30/17 18:16 10 MG ECG Indication: other (dizziness) Rate (beats per minute): 54 Rhythm: sinus bradycardia Findings: no acute ischemic change, no ectopy ED Course 175: The patient was evaluated in room B7. A complete history and physical exam was performed. 1800: Ordered Toradol Inj 30 mg IV, Dexamethasone Sodium Phosphate 10 mg/ Syringe 2.5 mL @ 1 mL/min IV, Compazine Inj 10 mg IV, Benadryl Inj 50 mg IV, Sodium Chloride 1000 ml @ 999 mls/hr IV. 2005: Reevaluated the patient. Discussed results and discharge instructions: she verbalized understanding and agreement. The patient is ready for discharge. Medical Decision The patient is a 36 year old female who presents to the ED with complaints of intermittent headaches for the past month. Differential diagnoses considered include migraine headache, ICH, concussion, anemia, electrolyte imbalance, UTI and PE. There is no leukocytosis or concerning anemia. No significant electrolyte abnormality, kidney failure or hepatitis. The patient appeared to be in a euthyroid state. Urinalysis does not show infection. EKG shows a sinus bradycardia, no acute ischemia. Brain CT shows no acute bleed or mass effect. The patient did have concerns for recurrent PE, a d-dimer was ordered-this result was elevated. A chest CT was then done, no PE noted. On my exam, the patient had no focal neurologic deficits. She was not febrile, she was not toxic. The patient received IV saline, IV Toradol, IV Compazine and IV Benadryl. She received IV Decadron. She is feeling improved. The patient was reassured by her testing. I suspect her headache is migrainous and possibly also related to her head injury a month ago. She may be still recovering from a concussion. The dizziness lately also could be postconcussive symptomatology. The patient is being referred to her family doctor and neurology. She was told to avoid activity where she might strike her head again. Rest and hydration were encouraged. [id number] pain medication was encouraged. If worsening, she can return. [place] Drug Monitoring Program Search Results: patient reviewed within database, no issues identified, see additional documentation Drug Monitoring Findings: No recent narcotic prescriptions. Klonopin is being prescribed as noted on medication list. Medication Reconcilliation Current Medication List: was personally reviewed by me Blood Pressure Screening Patient's blood pressure: Normal blood pressure Blood pressure disposition: Did not require urgent referral Impression Primary Impression: Headache Additional Impressions: Elevated d-dimer Near syncope Scribe Attestation The scribe's documentation has been prepared under my direction and personally reviewed by me in its entirety. I confirm that the note above accurately reflects all work, treatment, procedures, and medical decision making performed by me. Departure Information Dispostion Home / Self-Care Referrals Kimber Sawyer DO (PCP) Forms HOME CARE DOCUMENTATION FORM, IMPORTANT VISIT INFORMATION Patient Instructions My [facility] Additional Instructions rest fluids testing today was all ok motrin or tylenol for pain as needed brain CT scan was ok no lung clot by CT scan talk with jacqui HEBERT about seeing neurology be careful to avoid activities where you may hit your head again Problem Qualifiers
--- NOTE | 2017-08-30 18:40 | DIAGNOSTIC IMAGING REPORT ---
HEAD WITHOUT CONTRAST (CT) CLINICAL HISTORY: 36 years-old Female presenting with EVALUATE ALTERED MENTAL STATUS/WEAKNESS. TECHNIQUE: Multidetector CT imaging of the head was performed without the use of intravenous contrast. IV contrast: None. A dose lowering technique was used consistent with the principles of ALARA (as low as reasonably achievable). COMPARISON: 10/19/2016. CT DOSE (mGy.cm): The estimated cumulative dose is 537.48 mGy.cm. FINDINGS: Geomagnetician topogram: Unremarkable. Ventricles and sulci normal in size. Brain parenchyma normal in appearance with preserved fong-white differentiation. No mass effect or midline shift. No hemorrhage or acute territorial infarct. No extra-axial fluid collection. Paranasal sinuses and mastoid air cells clear. Calvarium intact. IMPRESSION: 1. No acute intracranial abnormality. Electronically signed by: Vlad Edge M.D. 08/30/2017 6:39 PM Dictated Date/Time: 08/30/2017 6:37 PM
[2017-08-30 18:52] LABS: URINE APPEARANCE CLEAR (CLEAR); URINE BILIRUBIN NEG (NEG); URINE COLOR YELLOW; URINE NITRITE NEG (NEG); URINE PH 6.5 (4.5-7.5); URINE SPECIFIC GRAVITY 1.011 (1.000-1.030); UROBILINOGEN NEG (NEG); ZZUR CULT IF INDIC CLEAN CATCH NO
[2017-08-30 18:56] LABS: BUN/CREATININE RATIO 13.6 (10-20); CALCIUM 8.7 mg/dl (8.5-10.1); CREATININE 0.95 mg/dl (0.60-1.20); POTASSIUM 3.9 mmol/L (3.5-5.1)
[2017-08-30 18:59] LABS: MANUAL MICROSCOPIC REQUIRED? NO; REVIEW REQ? NO
[2017-08-30 19:07] LABS: THYROID STIMULATING HORMONE 2.87 uIu/ml (0.300-4.500)
[2017-08-30] MEDS ORDERED: OPTIRAY 320 IV PRN (19:45)
[2017-08-30] MEDS ORDERED: CLON1TAB3 PO (19:48)
--- NOTE | 2017-08-30 19:48 | DIAGNOSTIC IMAGING REPORT ---
(CHEST FOR PE) ANGIO WITH CT DOSE: 300.16 mGy.cm HISTORY: 36 years-old Female presents with acute atypical chest pain TECHNIQUE: Multiple CTA images of the chest were obtained after the intravenous administration of 97 ml Optiray 320. Coronal and sagittal MIPS were obtained from the axial data set and were submitted for review. A dose lowering technique was utilized adhering to the principles of ALARA. COMPARISON: CTA of the chest 01/17/2017. FINDINGS: CTA: Heart is normal in size without pericardial effusion. Thoracic aorta is normal in both course and caliber without aneurysm or dissection. The pulmonary arterial tree is opacified to the segmental branches and demonstrates no focal filling defects to suggest pulmonary thromboembolic disease. CT CHEST: Thyroid is homogeneous without dominant nodule. There is no pathologic adenopathy identified. There is no pneumothorax, pleural effusion or focal airspace consolidation. Costophrenic angle of the left lower lobe is noted. Mild dependent subsegmental bibasilar atelectasis. Minimal mosaic attenuation of the upper lobes suggests some air trapping. Central airways are patent. Imaged upper abdominal structures demonstrate no acute abnormality. Soft tissues are unremarkable. Bones appear intact. IMPRESSION: 1. No acute cardiopulmonary process, specifically no acute aortic pathology or evidence of pulmonary thromboembolic disease. 2. No lobar airspace consolidation to suggest pneumonia. The above report was generated using voice recognition software. It may contain grammatical, syntax or spelling errors. Electronically signed by: Jet Ac M.D. 08/30/2017 7:47 PM Dictated Date/Time: 08/30/2017 7:43 PM
[2017-08-30 20:12] VITALS: BP 106/66; PULSE 56; O2SAT 95
[2017-08-30] MEDS ORDERED: DOXY100C76 PO (20:49)
[2017-08-30] MEDS ORDERED: CYAN100020 PO (20:49)
== END 2017-08-30 20:20 | disposition home or self-care (01) ==
LOC: C.EDB 16:53
DX: R51 Headache (principal); W22.8XXA Striking against or struck by other objects, initial encounter; Y92.89 Other specified places as the place of occurrence of the external cause; R55 Syncope and collapse; R79.1 Abnormal coagulation profile; Z86.711 Personal history of pulmonary embolism; Z87.891 Personal history of nicotine dependence; Z80.9 Family history of malignant neoplasm, unspecified; Z83.3 Family history of diabetes mellitus; Z82.49 Family history of ischemic heart disease and other diseases of the circulatory system; Z79.899 Other long term (current) drug therapy